=== PATIENT | female | born 1955 | race Caucasian/White ===

== ENCOUNTER 2021-10-25 08:09 | Outpatient (REF) | payer OTHER, SELFPAY ==
[2021-10-25 09:13] LABS: Alanine Aminotransferase 18 U/L (0-31); Albumin Level 4.4 g/dL (3.5-5.0); Alkaline Phosphatase 97 U/L (39-117); Anion Gap 16 (12-20); Aspartate Amino Transferase 20 U/L (5-31); Bilirubin Total 0.7 mg/dL (0.0-1.0); Blood Urea Nitrogen 16 mg/dL (9-16); Calcium 9.5 mg/dL (8.4-10.2); Carbon Dioxide 23 mmol/L (22-29); Chloride 108 mmol/L (96-108); Cholesterol 246 mg/dL; Estimated Glomerular Filt Rate > 60; Glucose Fasting 92 mg/dL (60-99); HDL Cholesterol 68 mg/dL; LDL Cholesterol Calculated 166 mg/dl; Potassium 4.5 mmol/L (3.3-5.1); Sodium 142 mmol/L (135-145); Total Protein 6.9 g/dL (6.5-8.0); Triglycerides 61 mg/dL
[2021-10-25 09:35] LABS: Free T4 (Free Thyroxine) 1.13 ng/dL (0.71-1.85); Thyroid Stimulating Hormone 1.03 uIU/mL (0.32-4.0)
== END 2021-10-25 08:10 | disposition home or self-care (01) ==
LOC: HO.LAB 08:09
PROVIDERS: Visit Provider Psychiatry & Neurology Psychiatry
DX: Z13.89 Encounter for screening for other disorder (principal)
CPT/HCPCS: 36415; 80053; 80061; 84439; 84443

== ENCOUNTER → 2022-02-26 14:38 | Outpatient (BNVA) | payer OTHER, SELFPAY | PROVIDERS: PCP Internal Medicine; Visit Provider Psychiatry & Neurology Psychiatry | DX: F32.A Depression, unspecified (principal) ==

== ENCOUNTER 2022-05-14 14:29 | Outpatient (AMB) | payer OTHER, SELFPAY ==
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
== END 2022-05-14 15:04 | disposition home or self-care (01) ==
LOC: HO.HOP 14:29
PROVIDERS: PCP Internal Medicine; Visit Provider Psychiatry & Neurology Psychiatry
DX: F41.1 Generalized anxiety disorder (principal); F33.42 Major depressive disorder, recurrent, in full remission; E03.9 Hypothyroidism, unspecified
CPT/HCPCS: 99499

== ENCOUNTER → 2022-05-14 14:29 | Outpatient (BNVA) | payer OTHER, SELFPAY | PROVIDERS: PCP Internal Medicine; Visit Provider Psychiatry & Neurology Psychiatry | DX: Z13.89 Encounter for screening for other disorder (principal) ==

== ENCOUNTER 2022-12-11 10:49 | Outpatient (AMB) | payer OTHER, SELFPAY ==
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
== END 2022-12-11 12:02 | disposition home or self-care (01) ==
LOC: HO.HOP 10:49
PROVIDERS: PCP Internal Medicine; Visit Provider Psychiatry & Neurology Psychiatry
DX: F33.42 Major depressive disorder, recurrent, in full remission (principal); F41.1 Generalized anxiety disorder
CPT/HCPCS: 90833; 99213

== ENCOUNTER → 2022-12-11 10:49 | Outpatient (BNVA) | payer OTHER, SELFPAY | PROVIDERS: PCP Internal Medicine; Visit Provider Psychiatry & Neurology Psychiatry ==

== ENCOUNTER 2023-06-12 11:36 | Outpatient (AMB) | payer OTHER, SELFPAY ==
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
== END 2023-06-12 13:44 | disposition home or self-care (01) ==
LOC: HO.HOP 11:36
PROVIDERS: PCP Internal Medicine; Visit Provider Psychiatry & Neurology Psychiatry
DX: F41.1 Generalized anxiety disorder (principal)
CPT/HCPCS: 90833; 99212

== ENCOUNTER → 2023-06-12 11:36 | Outpatient (BNVA) | payer OTHER, SELFPAY | PROVIDERS: PCP Internal Medicine; Visit Provider Psychiatry & Neurology Psychiatry ==

== ENCOUNTER 2023-09-25 10:53 | Outpatient (AMB) | payer BC, SELFPAY ==
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
== END 2023-09-25 12:04 | disposition home or self-care (01) ==
PROVIDERS: PCP Internal Medicine; Visit Provider Psychiatry & Neurology Psychiatry
DX: F41.1 Generalized anxiety disorder (principal); F33.42 Major depressive disorder, recurrent, in full remission; E03.9 Hypothyroidism, unspecified
CPT/HCPCS: 90833; 99213

== ENCOUNTER → 2023-09-25 10:53 | Outpatient (BNVA) | payer OTHER, SELFPAY | PROVIDERS: PCP Internal Medicine; Visit Provider Psychiatry & Neurology Psychiatry ==

== ENCOUNTER 2024-01-29 10:58 | Outpatient (AMB) | payer MEDICARE, SELFPAY ==
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
== END 2024-01-29 11:59 | disposition home or self-care (01) ==
LOC: HO.HOP 10:58
PROVIDERS: PCP Internal Medicine; Visit Provider Psychiatry & Neurology Psychiatry
DX: F33.42 Major depressive disorder, recurrent, in full remission (principal); F41.1 Generalized anxiety disorder
CPT/HCPCS: 90833; 99213

== ENCOUNTER → 2024-01-29 10:58 | Outpatient (BNVA) | payer MEDICARE, SELFPAY | PROVIDERS: PCP Internal Medicine; Visit Provider Psychiatry & Neurology Psychiatry | DX: F33.42 Major depressive disorder, recurrent, in full remission (principal); F41.1 Generalized anxiety disorder; Z71.89 Other specified counseling | CPT/HCPCS: 99212 ==

== ENCOUNTER 2024-03-15 13:50 | Emergency (ER) | payer MEDICARE, SELFPAY ==
--- NOTE | ~2024-03-15 | CT_ITS ---
EXAMINATION: CT CERVICAL SPINE WITHOUT CONTRAST CLINICAL INFORMATION: Fall, pain COMPARISON: None available. TECHNIQUE: 3 mm thin axial and reformatted 2 mm thin sagittal and coronal images of cervical spine were obtained without contrast. This CT examination was performed using dose optimization techniques as appropriate, variously including the following: *Automated exposure control *Adjustment of mA and/or kV according to patient size (this includes techniques or standardized protocols for targeted exams where dose is matched to indication/reason for exam; i.e. extremities or head) *Use of iterative reconstruction technique FINDINGS: On sagittal reconstructed images there is normal cervical lordosis. The vertebral heights and alignment is normal. There is loss of C4-5, C6-7 and C7-T1 disc heights . There is mild subluxation at the C1-C2 alignment with spine rotated to the left side. There is moderate calcification of the annular ligament at C1-C2 junction. Craniovertebral junction is normal. There is no visible acute fracture, dislocation or subluxation seen. The prevertebral and paravertebral soft tissues are normal. The lung apices are clear. The tracheal and pharyngeal airway is widely patent. CT/CT cervical spine wo IV con IMPRESSION: No acute fracture or dislocation. Degenerative disc changes as described above. Fleischner guidelines were followed. Electronically signed by: Zane Love MD 03/15/2024 04:35 PM [facility]
--- NOTE | ~2024-03-15 | CT_ITS ---
EXAMINATION: CT HEAD WITHOUT CONTRAST CLINICAL INFORMATION: Fall. Pain. COMPARISON: None available. TECHNIQUE: Contiguous axial imaging was performed from the skull base to vertex without intravenous administration of contrast. This CT examination was performed using dose optimization techniques as appropriate, variously including the following: *Automated exposure control *Adjustment of mA and/or kV according to patient size (this includes techniques or standardized protocols for targeted exams where dose is matched to indication/reason for exam; i.e. extremities or head) *Use of iterative reconstruction technique DLP: 1163 mGy/cm. FINDINGS: There is no acute intra-axial, extra-axial bleed, masses or midline shift. There is no acute infarction in evolution. There is no edema. The ayoub to white matter differences maintained normal. The lateral ventricles are symmetrical in size and configuration without enlargement. Bone windows reveal a small 1 mm lesion with central bone marrow surrounded with lucency likely a small sequestration. Best visualized on axial image 33/6 and coronal image 13/15. There is no scalp soft tissue body. Bilateral paranasal sinuses and mastoid air cells are well-aerated. CT/CT head/brain wo IV con IMPRESSION: No acute intracranial process seen. Additional finding of a small button sequestrum right frontal bone. Differential diagnosis includes osteomyelitis, eosinophilic granuloma, epidermoid/dermoid cyst, osteoid osteoma and fibrous dysplasia. Aggressive tumors or metastatic disease is considered less likely unless patient has a history of primary cancer. Electronically signed by: Zane Love MD 03/15/2024 04:27 PM [facility]
--- NOTE | ~2024-03-15 | XR_ITS ---
EXAMINATION: XR HAND/WRIST, RIGHT CLINICAL INFORMATION: foosh COMPARISON: None available. TECHNIQUE: PA, lateral, and oblique views of the right hand and wrist. FINDINGS: There is a comminuted spiral fracture of the distal radial metadiaphysis which extends through the epiphysis and is intra-articular. There is approximately 2 mm of step-off of the articular surface fracture. There is minimal override, mild comminution, and minimal volar angulation of the distal fracture fragment. No additional fractures are evident. Carpal bones appear intact and normally aligned. The distal ulna appears intact. Soft tissue swelling about the wrist. XR/XR hand wrist RT IMPRESSION: 1. Spiral, comminuted, intra-articular distal radial fracture as discussed. Electronically signed by: Remy Wharton MD 03/15/2024 03:08 PM [facility]
--- NOTE | ~2024-03-15 | CT_ITS ---
EXAMINATION: CT WRIST WITHOUT CONTRAST, RIGHT CLINICAL INFORMATION: Fall. Foosh injury COMPARISON: None available. TECHNIQUE: Axial 0.6 mm thin and reformatted 1 mm thin sagittal and coronal images of right wrist were obtained without contrast. This CT examination was performed using dose optimization techniques as appropriate, variously including the following: *Automated exposure control *Adjustment of mA and/or kV according to patient size (this includes techniques or standardized protocols for targeted exams where dose is matched to indication/reason for exam; i.e. extremities or head) *Use of iterative reconstruction technique FINDINGS: There is a comminuted distal radial fracture with intra-articular extension. There is a small avulsion fracture dorsal lunate bone best visualized on sagittal view 45/28. The distal ulna, carpal bones are normal with normal radiocarpal and carpometacarpal alignment. There is mild dorsal and palmar soft tissue swelling along the wrist. CT/CT wrist RT wo IV con IMPRESSION: Comminuted fractured distal radius with intra-articular extension. There is a long oblique fracture extending into the mid to distal radius. Ulna is intact. Suspect a small avulsion fracture dorsal to the lunate bone. Electronically signed by: Zane Love MD 03/15/2024 04:42 PM EST
[2024-03-15 14:20] VITALS: BP 145/85; PULSE 61; RESP 16; TEMP 37; O2SAT 100; BMI 21.4
--- NOTE | 2024-03-15 14:24 | ED_ITS ---
HPI - Extremity Injury (Upper) General Chief Complaint: Extremity Injury, Upper Stated Complaint: R wrist/forearm injury Time Seen by Provider: 03/15/24 15:04 Source: patient Mode of arrival: ambulatory Limitations: no limitations History of Present Illness ED Provider: Na Aldrich PA-C HPI narrative: Patient is a 68 year old assigned female at with a history of depression, anxiety, and hypothyroidism presenting to the emergency department today with right wrist pain. Patient states that almost 48 hours ago she had a slip and fall on an outstretched right hand and has pain ever since. Patient states that she is right hand dominant. Patient states that she did not hit her head or have any loss of consciousness with the incident. Patient denies any dizziness, lightheadedness, abdominal pain, nausea, vomiting, fever, chills, blurry vision, double vision, loss of vision, chest pain, difficulty breathing, shortness of breath, back pain, night sweats, pain with urination, increased urinary frequency, increased urinary urgency, blood in her urine or stool, syncope or a near syncopal episode, bowel incontinence, bladder incontinence, or any other complaints at this time. MD complaint: injury to: right, wrist and hand Related Data Home Medications ?Medication ?Instructions ?Recorded ?Confirmed levothyroxine 112 mcg tablet 112 mcg PO DAILY 01/29/24 01/29/24 (Synthroid) Allergies Allergy/AdvReac Type Severity Reaction Status Date / Time No Known Allergies Allergy Verified 03/15/24 14:22 [No Known Allergies*] Review of Systems Constitutional: Constitutional: Reports no additional constitutional complaints, Denies chills, Denies fever(s) and Denies night sweats Eyes: Eyes: Reports no additional eye complaints, Denies blurry vision, Denies change in vision, Denies diplopia, Denies eye discharge, Denies loss of vision and Denies eye pain ENT: Denies dizziness Cardiovascular: Cardiovascular: Reports no additional cardiovascular complaints, Denies chest pain, Denies lightheadedness, Denies Loss of Consciousness and Denies dyspnea Respiratory: Respiratory: Reports no additional respiratory complaints and Denies dyspnea Gastrointestinal: Gastrointestinal: Reports no additional gastrointestinal complaints, Denies abdominal pain, Denies melena, Denies hematochezia, Denies change in bowel habits and Denies change in stool character Genitourinary: Genitourinary: Denies hematuria, Denies urinary frequency, Denies dysuria, Denies urinary incontinence, Denies urinary hesitancy and Denies urinary urgency Musculoskeletal: Musculoskeletal: Reports no additional musculoskeletal complaints, Denies numbness and Denies tingling Comments: right wrist and hand pain Neurologic: Denies dizziness, Denies loss of vision, Denies numbness and Denies tingling Psychiatric: Psychiatric: Reports no additional psychiatric complaints Endocrine: Endocrine: Reports no additional endocrine complaints Hematologic/Lymphatic: Hematologic/Lymphatic: Reports no additional hematologic/lymphatic complaints Allergic/Immunologic: Allergic/Immunologic: Reports no additional allergic/immunologic complaints [facility] Past Medical History Attestation statement: The following information was validated with the patient. Source: old records reviewed and nursing notes reviewed Medical History Hypothyroidism Social History Social History Unable to assess alcohol history related to: Unknown Physical Exam Vital Signs: Vital Signs: Last Vital Signs Temp 97.6 F 03/15/24 17:14 Pulse 61 03/15/24 17:14 Resp 16 03/15/24 17:14 BP 146/87 H 03/15/24 17:14 Pulse Ox 98 03/15/24 17:14 O2 Del Method Room Air 03/15/24 17:14 BMI result Body Mass Index 21.4 Const: General: cooperative, no acute distress, alert and awake Nutritional Appearance: well nourished Orientation/consciousness: patient oriented x3 Limitations: no limitations HEENT: Head: Yes normal to inspection and Yes atraumatic Ears: hearing grossly normal bilaterally and external ears normal General nose exam: Normal external nose present, no nasal discharge noted and no epistaxis Face and sinus: Yes normal facial exam, No abrasion and No laceration Mouth: Normal oral and palatal mucosa present, no drooling and no muffled voice Eyes: General: appearance normal, both eyes and all related structures Periorbital: periorbital findings normal Eyelids: Yes eyelids normal Conjunctivae: conjunctivae normal Pupils: Equal, round and reactive pupils present EOM: EOMs intact bilaterally Neck: Neck: Yes normal visual inspection, Yes full ROM and Yes no lymphadenopathy Chest: Chest palpation & inspection: normal inspection of the chest Resp: Effort & Inspection: normal respiratory effort and able to speak in complete sentences GI: Inspection: Yes normal to inspection Neuro: General: patient oriented x3, moves all extremities and CN's II-XI intact bilaterally Cranial nerves: Yes Equal, round and reactive pupils present Cognition (Neuro): normal cognition Extrem: Other: Bruising present to the right dorsal wrist and hand Pain with palpation and ROM of the right wrist and hand Pulses present and strong to entire right upper extremity Limited ROM of the right wrist secondary to pain General: Yes normal to inspection and Yes capillary refill normal Psych: Appearance: grossly normal Mental Status: mental status grossly normal Affect: normal affect Attitude: cooperative Thought process: Normal thought process present Thought content: Normal thought content present Insight: Good insight present (Psych) Course Course Course Narrative: This is a Rapid Medical Examination (RME) performed by Peter Sims PA-C in triage. Full HPI, ROS, assessment and treatment plan per primary provider in the Main ED. 68 yo female here from for eval of right wrist/hand pain s/p FOOSH 2 days ago. slip and fall on ice, fall onto outstretched right hand. no head strike or LOC. seen at - no xrays taken. wrapped and sent to ED for further eval. Plan: xrs Medical Decision Making Medical Decision Making MDM Narrative: Patient is a 68 year old assigned female at with a history of depression, anxiety, and hypothyroidism presenting to the emergency department today with right wrist pain. Patient's physical exam was as noted in the physical exam portion of this note. Patient's CT head and c-spine showed no acute process however, the patient did have an incidental finding of her head CT of a small button sequestrum of the right front lobe with a large differential diagnosis given by the radiologist. Patient's right hand and wrist x-ray and CT showed a comminuted right distal radius fracture with intra-articular extension, a long oblique fracture extending into the mid to distal radius, and a small avulsion fracture dorsal of the lunate. I spoke to the orthopedic team who recommended sugar tong splint and follow up in their office on 03/16/2024 at 0845. I explained my physical exam findings as well as all test results to the patient. I answered all questions asked by the patient. Patient's right wrist was placed in a sugar tong splint, without incident. Patient's PMS was intact prior to and after splint placement. Patient's right upper extremity was placed in a sling, without incident. I stressed the importance of the patient taking her medication as directed (either prescribed or as the over the counter packaging recommends). I stressed the importance of the patient following up with her primary care provider and with the orthopedic group at the scheduled time (0845) on 03/16/2024. I stressed the importance of the patient returning to the emergency department immediately if her symptoms were to worsen or if she were to develop any dizziness, shortness of breath, difficulty breathing, chest pain, blurry vision, loss of vision, nausea, vomiting, abdominal pain, fever, chills, back pain, or any other complaints. Patient verbalized agreement and understanding with this treatment plan and discharge. Differential Diagnosis Differential Diagnoses: The differential diagnosis associated with the presentation includes Right wrist fracture Right hand fracture Admission/Observation Consideration of admission/observation: Escalation of care including admission/observation considered Patient would have been admitted to the hospital had her work up had any findings where hospital admission was appropriate and her clinical presentation warranted hospital admission. Consult Healthcare Provider Management of the patient was discussed with: Cryptologic Supervisor (spoke to the orthopedic team (DUDLEY Yun) as noted in the MDM Rationale portion of this note.) Independent Interpretation I performed an independent interpretation of an: Plain X-Ray and CT Scan Interpretation: My interpretation is in agreement with the radiologist's impression of these imaging studies. EXAMINATION: XR HAND/WRIST, RIGHT CLINICAL INFORMATION: foosh COMPARISON: None available. TECHNIQUE: PA, lateral, and oblique views of the right hand and wrist. FINDINGS: There is a comminuted spiral fracture of the distal radial metadiaphysis which extends through the epiphysis and is intra-articular. There is approximately 2 mm of step-off of the articular surface fracture. There is minimal override, mild comminution, and minimal volar angulation of the distal fracture fragment. No additional fractures are evident. Carpal bones appear intact and normally aligned. The distal ulna appears intact. Soft tissue swelling about the wrist. XR/XR hand wrist RT IMPRESSION: 1. Spiral, comminuted, intra-articular distal radial fracture as discussed. Electronically signed by: Remy Wharton MD 03/15/2024 03:08 PM EST Dictated By: Remy Wharton MD Signed By: Electronically signed by Remy Wharton MD 03/15/24 1508 Report Number: [id number]: Total DLP = 0.00 mGy-cm EXAMINATION: CT HEAD WITHOUT CONTRAST CLINICAL INFORMATION: Fall. Pain. COMPARISON: None available. TECHNIQUE: Contiguous axial imaging was performed from the skull base to vertex without intravenous administration of contrast. This CT examination was performed using dose optimization techniques as appropriate, variously including the following: *Automated exposure control *Adjustment of mA and/or kV according to patient size (this includes techniques or standardized protocols for targeted exams where dose is matched to indication/reason for exam; i.e. extremities or head) *Use of iterative reconstruction technique DLP: 1163 mGy/cm. FINDINGS: There is no acute intra-axial, extra-axial bleed, masses or midline shift. There is no acute infarction in evolution. There is no edema. The ayoub to white matter differences maintained normal. The lateral ventricles are symmetrical in size and configuration without enlargement. Bone windows reveal a small 1 mm lesion with central bone marrow surrounded with lucency likely a small sequestration. Best visualized on axial image 33/6 and coronal image 13/15. There is no scalp soft tissue body. Bilateral paranasal sinuses and mastoid air cells are well-aerated. CT/CT head/brain wo IV con IMPRESSION: No acute intracranial process seen. Additional finding of a small button sequestrum right frontal bone. Differential diagnosis includes osteomyelitis, eosinophilic granuloma, epidermoid/dermoid cyst, osteoid osteoma and fibrous dysplasia. Aggressive tumors or metastatic disease is considered less likely unless patient has a history of primary cancer. Electronically signed by: Zane Love MD 03/15/2024 04:27 PM EST RP Dictated By: Zane Love MD Signed By: Electronically signed by Zane Love MD 03/15/24 1627 Report Number: [id number]: Total DLP = 1065.91 mGy-cm EXAMINATION: CT CERVICAL SPINE WITHOUT CONTRAST CLINICAL INFORMATION: Fall, pain COMPARISON: None available. TECHNIQUE: 3 mm thin axial and reformatted 2 mm thin sagittal and coronal images of cervical spine were obtained without contrast. This CT examination was performed using dose optimization techniques as appropriate, variously including the following: *Automated exposure control *Adjustment of mA and/or kV according to patient size (this includes techniques or standardized protocols for targeted exams where dose is matched to indication/reason for exam; i.e. extremities or head) *Use of iterative reconstruction technique FINDINGS: On sagittal reconstructed images there is normal cervical lordosis. The vertebral heights and alignment is normal. There is loss of C4-5, C6-7 and C7-T1 disc heights . There is mild subluxation at the C1-C2 alignment with spine rotated to the left side. There is moderate calcification of the annular ligament at C1-C2 junction. Craniovertebral junction is normal. There is no visible acute fracture, dislocation or subluxation seen. The prevertebral and paravertebral soft tissues are normal. The lung apices are clear. The tracheal and pharyngeal airway is widely patent. CT/CT cervical spine wo IV con IMPRESSION: No acute fracture or dislocation. Degenerative disc changes as described above. Fleischner guidelines were followed. Electronically signed by: Zane Love MD 03/15/2024 04:35 PM EST RP Dictated By: Zane Love MD Signed By: Electronically signed by Zane Love MD 03/15/24 3268 Report Number: [id number]: Total DLP = 96.69 mGy-cm EXAMINATION: CT WRIST WITHOUT CONTRAST, RIGHT CLINICAL INFORMATION: Fall. Foosh injury COMPARISON: None available. TECHNIQUE: Axial 0.6 mm thin and reformatted 1 mm thin sagittal and coronal images of right wrist were obtained without contrast. This CT examination was performed using dose optimization techniques as appropriate, variously including the following: *Automated exposure control *Adjustment of mA and/or kV according to patient size (this includes techniques or standardized protocols for targeted exams where dose is matched to indication/reason for exam; i.e. extremities or head) *Use of iterative reconstruction technique FINDINGS: There is a comminuted distal radial fracture with intra-articular extension. There is a small avulsion fracture dorsal lunate bone best visualized on sag ittal view 45/28. The distal ulna, carpal bones are normal with normal radiocarpal and carpometacarpal alignment. There is mild dorsal and palmar soft tissue swelling along the wrist. CT/CT wrist RT wo IV con IMPRESSION: Comminuted fractured distal radius with intra-articular extension. There is a long oblique fracture extending into the mid to distal radius. Ulna is intact. Suspect a small avulsion fracture dorsal to the lunate bone. Electronically signed by: Zane Love MD 03/15/2024 04:42 PM [facility] Dictated By: Zane Love MD Signed By: Electronically signed by Zane Love MD 03/15/24 [id number] Radiology Impression Discussion of test interpretation with radiology: I have reviewed the radiologist's reading. Procedures Orthopedic Splinting/Casting Injury #1: Side: right Upper Extremity Injury Location: wrist and hand Upper Extremity Immobilizer: sling/shoulder immobilizer and sugar tong splint Critical Care Time Critical Care Time Critical Care Time: Yes Total Critical Care Time: 44 Attestation: I spent 44 minutes of Critical Care Time with this patient. This does not include time spent on separately reported billable procedures. Discharge Plan Discharge Clinical Impression: Fracture of wrist, Fracture of hand Patient Disposition: Home, Self-Care Instructions: Hand Fracture (ED), Wrist Fracture in Adults (ED), How to Use a Sling (ED) Additional Instructions: Your right wrist and hand x-ray showed a comminuted fracture of the distal radius with intra-articular extension, a long oblique fracture of extending mid to distal radius, and a small avulsion fracture dorsal of the lunate bone. Your CT scan of the head showed a small button sequestrum of the right front bone. This could be many different things and it is crucial you follow up with your primary care provider about this abnormal incidental finding. Do NOT get your splint wet. Do NOT remove your splint. If you have any change in sensation, movement, or color of your right fingers - you may loosen the outer SUSAN wraps. If you find yourself loosening the SUSAN wraps to the point of seeing the white splint material underneath - STOP and proceed to your closest Emergency Department immediately. Follow up with your primary care provider and [place] [facility] [place] 0845 on 03/16/2024. Return to the emergency department immediately if your symptoms worsen or if you develop any dizziness, shortness of breath, difficulty breathing, chest pain, blurry vision, loss of vision, nausea, vomiting, abdominal pain, fever, chills, back pain, or any other complaints. Prescriptions: No Action levothyroxine [Synthroid] 112 mcg tablet 112 mcg PO DAILY [place] [facility] [place] [facility] [Provider Group] (Please attend your [facility] appointment on 03/16/2024) Cristina Hansen MD [Primary Care Provider] - Interventions: ED Discharge Assessment Last Done: 03/15/24 17:14 Discharge Date/Time: 03/15/24 17:15 Print Language: Dominican
--- OUTSIDE RECORDS SUMMARY | 2024-03-15 15:20 | XMS_ITS | Clinical Summary ---
Author Organization [address] Address [address] [place] [id number] Phone Care Team Providers Care Furrier Designer Name Role Phone Cristina Corona MD Primary Care Prov ider Allergies No known active allergies Medications Medication Sig Dispensed Refills Start Date End Date Status Synthroid 112 mcg tablet TAKE 1 TABLET BY MOUTH EVERY DAY 90 tablet 1 01/19/2024 Active Synthroid 112 mcg tablet Take 1 tablet (112 mcg total) by mouth 1 (one) time each day. 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 Osteopenia 11/26/2011 Bipolar affective disorder 12/12/2010 Overview (01/19/2024): Krista Davis provider Immunizations Name Administration Dates Next Due Hepatitis B (Nwelebs-I-Diace , Recombivax HB-Adult) 19yo and older 04/21/2013,11/11/2012,10/14/2012 Influenza Quadravalent, MDCK , 0.5ml, preservative free (Flucelvax) 6mo and older 01/08/2017,12/26/2015 Influenza Quadrivalent, 0.5m l, preservative free (Fluarix; FluLaval; Fluzone) ages 6mo and older (Afluria) 3yo and older 12/27/2018,01/26/2018 Influenza trivalent, with pr eservative (Fluzone; Afluria) 6mo and older 10/29/2011,11/18/2010 PPD Test 12/09/2016 Td Tetanus diptheria (Tdvax) 7yo and older 02/09 Tdap Tetanus diptheria acell ular pertussis (Boostrix; Adacel) 7yo and older 07/24/2022,03/25/2012 Surgical History Surgery Date Site/Laterality Comments OTHER SURGICAL HISTORY age 23 PROCEDURE: HISTORY OTHER; COMMENT: Radioactive ablation thyroid COLONOSCOPY 02/20/11 PROCEDURE: HISTORICAL COLONOSCOPY; COMMENT: normal; repeat in ten yrs Medical History Medical History Date Comments Historical Medical DX DX:Grave's disease; COMMENT: age 24 ablation done Abnormal Pap smear of cervix -2002 DX: Abnormal Pap smear of cervix; COMMENT: treated with colpo, ? LEEP(by pt description). Bipolar affective disorder (CMS/HCC) 12/12/2010 DX:Bipolar affective disorder (HCC); COMMENT: Susan provider Family History Medical History Relation Name Comments Breast cancer Neg Hx Colon cancer Neg Hx Ovarian cancer Neg Hx Uterine cancer Neg Hx Relation Name Status Comments Brother Alive healthy Father (Age 70) stroke Mother (Age 70) heart nestor ck, HTN Social History Tobacco Use Types Packs/Day Years Used Date Smoking Tobacco: Never Smokeless Tobacco: Never Alcohol Use Standard Drinks/Week Comments Yes 0 (1 standard drink = 0.6 oz pur e alcohol) Sex and Gender Information Value Date Recorded Sex Assigned at Not on file Gender Identity Not on file Sexual Orientation Not on file Job Start Date Occupation Industry Not on file Not on file Not on file Obstetrics History Last Filed Vital Signs Vital Sign Reading Time Taken Comments Blood Pressure 115/60 11/04/2023 11:06 AM EDT Pulse 56 11/04/2023 11:06 AM EDT Temperature - - Respiratory Rate - - Oxygen Saturation - - Inhaled Oxygen Concentration - - Weight 66.2 kg (146 lb) 11/04/2023 11:06 AM EDT Height 176.5 cm (5' 9.5 ) 11/04/2023 11:06 AM ED T Body Mass Index 21.25 11/04/2023 11:06 AM EDT Plan of Treatment Upcoming Encounters Date Type Department Care Team (Late st Contact Info) Description 05/04/2024 11:00 AM EDT Office Visit Adult Medicine [address] [phone] Cristina Corona MD [address] [place] [id number] Health Maintenance Due Date Last Done Comments Zoster Vaccines (1 of 2) 05/14/2007 Cervical Cancer Screening: HPV 04/19/2020 04/20/2015 Breast Cancer Screening 05/17/2020 05/18/19 19, 05/11/2017, 05/06/2016 Colorectal Cancer Screening: Colonoscopy 01/18/2022 Depression Screening 01/18/2022 Osteoporosis Screening (Bone Density Screening) 01/18/2022 Social Influencers of Health Screening 01/18/2022 Falls Risk Assessment 2022 Pneumococcal Vaccine: 65+ Years (1 of 1 - PCV) 2022 COVID-19 Vaccine (2 - season) 2023 05/18/2020 Influenza Vaccine (#1) 2023 9, 01/26/2018, 01/08/2017, Additional history exists Cholesterol Screening (Lipid Panel) 01/17/2029 01/18/2024 RSV Immunization Patients 60+ Years Old (1 - 1-dose 75+ series) 2032 DTaP,Tdap,and Td Vaccines (4 - Td or Tdap) 07/24/2032 07/24/2022, 03/25/2012, 02/09/2007 Hepatitis C Screening Completed 10/14/2012 Hepatitis B Vaccines Completed 04/21/2013, 11/11/2012, 10/14/2012 HIB Vaccines Aged Out No longer eligi ble based on patient's age to complete this topic HPV Vaccines Aged Out No longer eligi ble based on patient's age to complete this topic Hepatitis A Vaccines Aged Out No long er eligible based on patient's age to complete this topic IPV Vaccines Aged Out No longer eligi ble based on patient's age to complete this topic MMR Vaccines Aged Out No longer eligi ble based on patient's age to complete this topic Meningococcal ACWY Vaccine Aged Out N o longer eligible based on patient's age to complete this topic RSV Immunization Patients Under 20 months Aged Out No longer eligible based on patient's age to complete this topic Varicella Vaccines Aged Out No longer eligible based on patient's age to complete this topic Procedures Procedure Name Priority Date/Time Associated Diagnosis Comments CBC WITH AUTO DIFFERENTIAL Routine 01/18/2024 9:37 AM EST Hypothyroidism due to medication LIPID PANEL WITH REFLEX TO DIRECT LDL Routine 01/18/2024 9:37 AM EST Hypothyroidism due to medication THYROID STIMULATING HORMONE Routine 01/18/2024 9:37 AM EST Hypothyroidism due to medication CBC AND DIFFERENTIAL Routine 01/18/2024 9:37 AM EST Hypothyroidism due to medication SCR MAMMO BI INCL CAD Routine 05/17/2018 1:16 PM EDT Encounter for screening mammogram for malignant neoplasm of breast HPV Routine 04/20/2015 HEPATITIS C SCREENING Routine 10/14/2012 from Last 3 Months or Most Recently Relevant to Health Maintenance Results * (ABNORMAL) Lipid panel with reflex to direct LDL (01/18/2024 9:37 AM EST) Cholesterol 271(H) 0 - 200 mg/dL LAB CHEMISTRY METHOD 01/18/2024 1:40 PM [facility] Triglycerides 89 0 - 150 mg/dL LAB CHEMISTRY METHOD 01/18/2024 1:40 PM [facility] HDL 91 >=40 mg/dL LAB CHEMISTRY METHOD 01/18/2024 1:40 PM [facility] LDL Calculated 162(H) 0 - 100 mg/dL LAB CHEMISTRY METHOD 01/18/2024 1:40 PM [facility] VLDL Cholesterol Manuel 17.8 mg/dL LAB CHEMISTRY METHOD 01/18/2024 1:40 PM [facility] Non HDL Chol. (LDL+VLDL) 180(H) <145 mg/dL LAB CHEMISTRY METHOD 01/18/2024 1:40 PM [facility] Chol/HDL Ratio 3.0 0.0 - 4.4 LAB CHEMISTRY METHOD 01/18/2024 1:40 PM [facility] Blood Venous blood specimen / Unknown Venipuncture / Unknown 01/18/2024 9:37 AM EST 01/18/2024 9:37 AM EST Cristina Corona MD LAB BLOOD ORDERABLES [facility] [address] [place] [address], * CBC auto differential (01/18/2024 9:37 AM EST) WBC 4.8 4.8 - 10.8 K/mcL LAB HEMETOLOGY METHOD 01/18/2024 1:07 PM [facility] RBC 4.70 3.80 - 4.80 M/mcL LAB HEMETOLOGY METHOD 01/18/2024 1:07 PM [facility] Hemoglobin 14.3 11.5 - 16.0 g/dL LAB HEMETOLOGY METHOD 01/18/2024 1:07 PM [facility] Hematocrit 44.2 35.0 - 47.0 % LAB HEMETOLOGY METHOD 01/18/2024 1:07 PM [facility] MCV 95.1 79.0 - 98.0 FL LAB HEMETOLOGY METHOD 01/18/2024 1:07 PM [facility] MCH 30.8 27.0 - 32.0 pcg LAB HEMETOLOGY METHOD 01/18/2024 1:07 PM [facility] MCHC 32.4 32.0 - 37.0 g/dL LAB HEMETOLOGY METHOD 01/18/2024 1:07 PM [facility] RDW 13.1 11.0 - 15.0 % LAB HEMETOLOGY METHOD 01/18/2024 1:07 PM [facility] Platelets 350 130 - 400 K/mcL LAB HEMETOLOGY METHOD 01/18/2024 1:07 PM [facility] MPV 9.8 7.0 - 11.0 FL LAB HEMETOLOGY METHOD 01/18/2024 1:07 PM [facility] NRBC 0.0 <1.0 % LAB HEMETOLOGY METHOD 01/18/2024 1:07 PM [facility] NRBC Absolute 0.00 <0.10 K/mcL LAB HEMETOLOGY METHOD 01/18/2024 1:07 PM [facility] Neutrophils Relative 60.0 % LAB HEMETOLOGY METHOD 01/18/2024 1:07 PM [facility] Lymphocytes Relative 30.2 % LAB HEMETOLOGY METHOD 01/18/2024 1:07 PM [facility] Monocytes Relative 7.4 % LAB HEMETOLOGY METHOD 01/18/2024 1:07 PM [facility] Eosinophils Relative 1.4 % LAB HEMETOLOGY METHOD 01/18/2024 1:07 PM [facility] Basophils Relative 0.8 % LAB HEMETOLOGY METHOD 01/18/2024 1:07 PM [facility] Immature Granulocytes Relative 0.2 % LAB HEMETOLOGY METHOD 01/18/2024 1:07 PM [facility] Neutrophils Absolute 2.90 1.50 - 7.00 K/mcL LAB HEMETOLOGY METHOD 01/18/2024 1:07 PM [facility] Lymphocytes Absolute 1.46 1.00 - 5.00 K/mcL LAB HEMETOLOGY METHOD 01/18/2024 1:07 PM [facility] Monocytes Absolute 0.36 0.20 - 1.00 K/mcL LAB HEMETOLOGY METHOD 01/18/2024 1:07 PM [facility] Eosinophils Absolute 0.07 0.00 - 0.50 K/mcL LAB HEMETOLOGY METHOD 01/18/2024 1:07 PM EST [facility] Basophils Absolute 0.04 0.00 - 0.20 K/[facility] LAB HEMETOLOGY METHOD 01/18/2024 1:07 PM EST [facility] Immature Granulocytes Absolute 0.01 0.00 - 0.03 K/[facility] LAB HEMETOLOGY METHOD 01/18/2024 1:07 PM EST [facility] Blood Venous blood specimen / Unknown Venipuncture / Unknown 01/18/2024 9:37 AM EST 01/18/2024 9:37 AM EST Cristina Corona MD LAB BLOOD ORDERABLES Performing Organization Address City/[facility]/ZIP Co de Phone Number [facility] [address] [place] [address], * Thyroid stimulating hormone (01/18/2024 9:37 AM EST) TSH 1.11 0.40 - 4.00 mcIU/mL LAB CHEMISTRY METHOD 01/18/2024 1:32 PM EST [facility] Blood Venous blood specimen / Unknown Venipuncture / Unknown 01/18/2024 9:37 AM EST 01/18/2024 9:37 AM EST Cristina Corona MD LAB BLOOD ORDERABLES [facility] [address] [place] [address], [place] [phone] * SCR MAMMO BI INCL CAD (05/17/2018 1:16 PM EDT) Anatomical Region Laterality Modality Radiographic Elina ging 05/11/2017 2:02 PM EDT Narrative 05/18/2018 1:05 PM EDT This is a summary report. The complete report is available in the patient's medical record. If you cannot access the medical record, please contact the sending organization for a detailed fax or copy. Full field digital screening mammography, reviewed with CAD and compared to previous. The breast tissue is heterogeneously dense, limiting sensitivity. No suspicious mass, architectural distortion or suspicious calcifications are identified. IMPRESSION: : Dense breast tissue, limiting the sensitivity of mammography. No mammographic evidence of malignancy. BIRADS 1-Negative; N. 5 year breast cancer risk assessment 1.5 % Lifetime breast cancer risk assessment 7.2 % Breast cancer risk category Low (<15%) Procedure Note Cheko Goff MD - 01/28/2022 This is a summary report. The complete report is available in thepatient's medical record. If you cannot access the medical record, pleasecontact the sending organization for a detailed fax or copy. Full field digital screening mammography, reviewed with CAD and comparedto previous. The breast tissue is heterogeneously dense, limitingsensitivity. No suspicious mass, architectural distortion or suspiciouscalcifications are identified. IMPRESSION: : Dense breast tissue, limiting the sensitivity of mammography. Nomammographic evidence of malignancy. BIRADS 1-Negative; N. 5 year breast cancer risk assessment 1.5 % Lifetime breast cancer risk assessment 7.2 % Breast cancer risk category Low (<15%) Melody Ba MD IMG XR PROCEDUR ES * Cervical Cancer Screening: HPV (04/20/2015) [facility] Cervical Cancer Screening: HPV abstracted, negative Historical Provider MD TREVOR ALFARO E * Hepatitis C Screening (10/14/2012) [facility] Hepatitis C Screening abstracted Historical Provider MD TREVOR Lorenzana from Last 3 Months or Most Recently Relevant to Health Maintenance Care Teams Furrier Designer Relationship Specialty Start Date End Date Cristina Corona MD PCP - General Internal Medicine 09/10/21
[2024-03-15 15:26] VITALS: BP 146/87; PULSE 61; RESP 16; TEMP 36.4; O2SAT 98
[2024-03-15 17:14] VITALS: BP 146/87; PULSE 61; RESP 16; TEMP 36.4; O2SAT 98
== END 2024-03-15 17:15 | disposition home or self-care (01) ==
PROVIDERS: Emergency Provider Emergency Medicine; PCP Internal Medicine
DX: S62.101A Fracture of unspecified carpal bone, right wrist, initial encounter for closed fracture (principal); S62.91XA Unspecified fracture of right hand, initial encounter for closed fracture; M54.2 Cervicalgia; M79.641 Pain in right hand; M25.531 Pain in right wrist; R51.9 Headache, unspecified; W19.XXXA Unspecified fall, initial encounter; Y93.9 Activity, unspecified; Y92.89 Other specified places as the place of occurrence of the external cause; Y99.8 Other external cause status; Z79.899 Other long term (current) drug therapy
CPT/HCPCS: 29125; 70450; 72125; 73110; 73130; 73200; 99284

== ENCOUNTER → 2024-03-15 14:22 | Outpatient (BNV) | payer MEDICARE, SELFPAY | PROVIDERS: Emergency Provider Emergency Medicine; PCP Internal Medicine; Visit Provider Radiology Diagnostic Radiology | DX: M25.531 Pain in right wrist (principal); M79.641 Pain in right hand; M54.2 Cervicalgia; W19.XXXA Unspecified fall, initial encounter | CPT/HCPCS: 70450; 72125; 73110; 73130; 73200 ==

== ENCOUNTER 2024-03-16 08:43 | Outpatient (AMB) | payer MEDICARE, SELFPAY ==
--- NOTE | 2024-03-16 08:24 | MHC.OFFVIS ---
Vital Signs 03/16/24 09:02 Height 5 ft 9 in Weight 144 lb BMI 21.3 Intake Visit Reasons: FC-right wrist/hand pain s/p-DOI 03/13/24 Intake Note: Deysi 68 yr old female presents today for a new patient visit for her right wrist pain. Patient states that on 03/13/24 she had a slip and fall on an outstretched right hand and has pain ever since. Patient states that she is right hand dominant. Seen in ED where xrays were taken, placed in a sugar tong splint and referred to orthopedic. Currently states she has no pain due to having her splint on. Denies numbness or tingling. Allergies No Known Allergies [No Known Allergies*] Allergy (Verified 03/16/24 08:51) HPI HPI FC-right wrist/hand pain s/p-DOI 03/13/24: Details: Deysi is a 68 year old right hand dominant woman who presents for a right wrist & forearm fracture, S/P fall, DOI: 03/13/24. She slipped and fell on some ice. She was seen in the ED on 03/15/24 and placed in a Sugar-tong splint. She complains of pain in her wrist & forearm, worse with motion. She denies any numbness or tingling. She says she enjoys doing art projects at home, and wants to now how long she has to wait before she can return to these activities. She had questions about surgery and the recovery timeline. 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 Review of Systems Const All systems reviewed & are unremarkable except as noted in HPI and below Physical Exam Vital Signs: BMI result Body Mass Index 21.3 Const General: cooperative, healthy appearing and no acute distress Orientation/consciousness: patient oriented x3 HEENT Head: Yes normocephalic and Yes atraumatic Eyes EOM: EOMs intact bilaterally Resp Effort & Inspection: normal respiratory effort and able to speak in complete sentences Cardio Jugular venous distension: no JVD Skin General skin exam: turgor normal Rashes: no rashes Neuro General: patient oriented x3 Extrem Other: Evaluation of Right Upper Extremity: The patient is alert, oriented, and in no acute distress Neuro: Median, Ulnar, Radial nerves motor and sensory grossly intact Vascular: Cap refill brisk ROM: Only weakly able to wiggle her fingers secondary to pain She was able to demonstrate elbow flexion extension without pain No lacerations or abrasions, or evidence of open fracture Ecchymosis about the wrist & hand Swelling in the forearm that extends up into the elbow Most tender over the distal radius No tenderness over the radial head No tenderness about the olecranon or distal humerus No pain with proximal forearm squeeze Radiographs: 3 views of the right wrist from 03/15/24 were reviewed by me today in clinic. They show a long, oblique, spiral, comminuted, distal radius fracture, intra-articular, & radial shaft fracture, extending from the lunate facet proximally into the shaft, with additional comminution in the radial styloid metaphysis, minimally displaced. CT/CT wrist RT wo IV con FINDINGS: There is a comminuted distal radial fracture with intra-articular extension. There is a small avulsion fracture dorsal lunate bone best visualized on sagittal view 45/28. The distal ulna, carpal bones are normal with normal radiocarpal and carpometacarpal alignment. There is mild dorsal and palmar soft tissue swelling along the wrist. IMPRESSION: Comminuted fractured distal radius with intra-articular extension. There is a long oblique fracture extending into the mid to distal radius. Ulna is intact. Suspect a small avulsion fracture dorsal to the lunate bone. Electronically signed by: Zane Love MD 03/15/2024 Psych Appearance: grossly normal Affect: normal affect Attitude: cooperative Assessment & Plan Assessment & Plan (1) Fracture of right distal radius: Code(s): S52.501A - Unspecified fracture of the lower end of right radius, initial encounter for closed fracture Category: Medical (2) Fracture of radial shaft, right, closed: Code(s): S52.301A - Unspecified fracture of shaft of right radius, initial encounter for closed fracture Category: Medical (3) Right lunate fracture: Code(s): S62.121A - Displaced fracture of lunate [semilunar], right wrist, initial encounter for closed fracture Category: Medical Plan Assessment & Plan: 1. Right distal radius fracture, spiral comminuted From a fall, DOI: 03/13/24 2. Right radial shaft fracture, long oblique Extending from the lunate facet proximally into the shaft, with additional comminution in the radial styloid From a fall, DOI: 03/13/24 I educated her about this condition I discussed operative and non-operative treatment options, and recommending surgery The patient would like to proceed with surgery She should keep her arm elevated at or above heart level to reduce swelling The risks and benefits of operative treatment were discussed with the patient and the patient wishes to proceed with surgery. These risks include, but are not limited to risk of damage to blood vessels, nerves, tendons, infection, recurrence, incomplete relief of preoperative symptoms, persistent pain, possible need for further surgery and the risks associated with regional blocks and anesthesia. The plan is to take the patient to the operating room sometime on 03/17/24 for the following procedures: 1. Right distal radius & radial shaft fracture ORIF, under general All of the preoperative paperwork including the consent was reviewed today. All the patient's questions were answered. The patient understands that they will be contacted by our auto transmission specialist soon to schedule this procedure She denies Diabetes, blood thinners, asthma, heart, lung, kidney issues Please note that greater than 45 minutes was spent with this patient going over the history, evaluating the patient and radiographs, formulating possible treatment options, discussing them with the patient, and documenting the visit. Scribed for Chani Ceja MD by Oren Tamayo, medical anthropology director, on 03/16/24 at 9:20 AM, EST. Coding Level of Care Code New Pt Level 4 (22851) Diagnoses Fracture of right distal radius S52.501A Fracture of radial shaft, right, closed S52.301A Right lunate fracture S62.121A
--- OUTSIDE RECORDS SUMMARY | 2024-03-16 08:46 | XMS_ITS | Clinical Summary ---
Author Organization [address] Address [address] [place] [phone] Phone Care Team Providers Care Staff Sonographer Name Role Phone Cristina Corona MD Primary [...] Name Administration Dates Next Due Hepatitis B (Vvicfml-R-Esfij , Recombivax HB-Adult) 19yo and older 04/21/2013,11/11/2012,10/14/2012 [...] 11:00 AM EDT Office Visit Adult Medicine [address] [phone] Cristina Corona MD [address] [place] [id number] Health Maintenance Due Date Last Done Comments [...] mg/dL LAB CHEMISTRY METHOD 01/18/2024 1:40 PM [facility] Triglycerides 89 0 - 150 mg/dL LAB CHEMISTRY METHOD 01/18/2024 1:40 PM [facility] HDL 91 >=40 mg/dL LAB CHEMISTRY METHOD 01/18/2024 1:40 PM [facility] LDL Calculated 162(H) 0 - 100 mg/dL LAB CHEMISTRY METHOD 01/18/2024 1:40 PM [facility] VLDL Cholesterol Manuel 17.8 mg/dL LAB CHEMISTRY METHOD 01/18/2024 1:40 PM [facility] Non HDL Chol. (LDL+VLDL) 180(H) <145 mg/dL LAB CHEMISTRY METHOD 01/18/2024 1:40 PM [facility] Chol/HDL Ratio 3.0 0.0 - 4.4 LAB CHEMISTRY METHOD 01/18/2024 1:40 PM [facility] Blood Venous blood specimen / Unknown Venipuncture / Unknown 01/18/2024 9:37 AM EST 01/18/2024 9:37 AM EST Cristina Corona MD LAB BLOOD ORDERABLES [facility] [address] [place] [address], * CBC auto differential (01/18/2024 9:37 AM EST) WBC 4.8 4.8 - 10.8 K/mcL LAB HEMETOLOGY METHOD 01/18/2024 1:07 PM [facility] RBC 4.70 3.80 - 4.80 M/mcL LAB HEMETOLOGY METHOD 01/18/2024 1:07 PM [facility] Hemoglobin 14.3 11.5 - 16.0 g/dL LAB HEMETOLOGY METHOD 01/18/2024 1:07 PM [facility] Hematocrit 44.2 35.0 - 47.0 % LAB HEMETOLOGY METHOD 01/18/2024 1:07 PM [facility] MCV 95.1 79.0 - 98.0 FL LAB HEMETOLOGY METHOD 01/18/2024 1:07 PM [facility] MCH 30.8 27.0 - 32.0 pcg LAB HEMETOLOGY METHOD 01/18/2024 1:07 PM [facility] MCHC 32.4 32.0 - 37.0 g/dL LAB HEMETOLOGY METHOD 01/18/2024 1:07 PM [facility] RDW 13.1 11.0 - 15.0 % LAB HEMETOLOGY METHOD 01/18/2024 1:07 PM [facility] Platelets 350 130 - 400 K/mcL LAB HEMETOLOGY METHOD 01/18/2024 1:07 PM [facility] MPV 9.8 7.0 - 11.0 FL LAB HEMETOLOGY METHOD 01/18/2024 1:07 PM [facility] NRBC 0.0 <1.0 % LAB HEMETOLOGY METHOD 01/18/2024 1:07 PM [facility] NRBC Absolute 0.00 <0.10 K/mcL LAB HEMETOLOGY METHOD 01/18/2024 1:07 PM [facility] Neutrophils Relative 60.0 % LAB HEMETOLOGY METHOD 01/18/2024 1:07 PM [facility] Lymphocytes Relative 30.2 % LAB HEMETOLOGY METHOD 01/18/2024 1:07 PM [facility] Monocytes Relative 7.4 % LAB HEMETOLOGY METHOD 01/18/2024 1:07 PM [facility] Eosinophils Relative 1.4 % LAB HEMETOLOGY METHOD 01/18/2024 1:07 PM [facility] Basophils Relative 0.8 % LAB HEMETOLOGY METHOD 01/18/2024 1:07 PM [facility] Immature Granulocytes Relative 0.2 % LAB HEMETOLOGY METHOD 01/18/2024 1:07 PM [facility] Neutrophils Absolute 2.90 1.50 - 7.00 K/mcL LAB HEMETOLOGY METHOD 01/18/2024 1:07 PM [facility] Lymphocytes Absolute 1.46 1.00 - 5.00 K/mcL LAB HEMETOLOGY METHOD 01/18/2024 1:07 PM [facility] Monocytes Absolute 0.36 0.20 - 1.00 K/mcL LAB HEMETOLOGY METHOD 01/18/2024 1:07 PM [facility] Eosinophils Absolute 0.07 0.00 - 0.50 K/mcL LAB HEMETOLOGY METHOD 01/18/2024 1:07 PM EST [facility] Basophils Absolute 0.04 0.00 - 0.20 K/[facility] LAB HEMETOLOGY METHOD 01/18/2024 1:07 PM EST [facility] Immature Granulocytes Absolute 0.01 0.00 - 0.03 K/[facility] HEMETOLOGY METHOD 01/18/2024 1:07 PM EST [facility] Blood Venous blood specimen / Unknown Venipuncture / Unknown 01/18/2024 9:37 AM EST 01/18/2024 9:37 AM EST Cristina Corona MD LAB BLOOD ORDERABLES Performing Organization Address City/[facility]/ZIP Co de Phone Number [facility] [address] [place] [address], * Thyroid stimulating hormone (01/18/2024 9:37 AM EST) TSH 1.11 0.40 - 4.00 mcIU/mL LAB CHEMISTRY METHOD 01/18/2024 1:32 PM EST [facility] Blood Venous blood specimen / Unknown Venipuncture / Unknown 01/18/2024 9:37 AM EST 01/18/2024 9:37 AM EST Cristina Corona MD LAB BLOOD ORDERABLES [facility] [address] [place] [address], [place] [phone] * SCR MAMMO BI INCL CAD (05/17/2018 [...] ES * Cervical Cancer Screening: HPV (04/20/2015) [facility] Cervical Cancer Screening: HPV abstracted, negative Historical Provider MD TREVOR ALFARO E * Hepatitis C Screening (10/14/2012) [facility] Hepatitis C Screening abstracted Historical Provider MD TREVOR Lorenzana from Last 3 Months or Most Recently Relevant to Health Maintenance Care Teams Staff Sonographer Relationship Specialty Start Date End Date Cristina Corona MD PCP - General Internal Medicine 09/10/21
[2024-03-16 09:02] VITALS: BMI 21.3
== END 2024-03-16 10:11 | disposition home or self-care (01) ==
PROVIDERS: PCP Internal Medicine; Visit Provider Orthopaedic Surgery
DX: S52.501A Unspecified fracture of the lower end of right radius, initial encounter for closed fracture (principal); S52.301A Unspecified fracture of shaft of right radius, initial encounter for closed fracture; S62.121A Displaced fracture of lunate [semilunar], right wrist, initial encounter for closed fracture; W00.0XXA Fall on same level due to ice and snow, initial encounter
CPT/HCPCS: 99204

== ENCOUNTER → 2024-03-16 08:43 | Outpatient (BNVA) | payer MEDICARE, SELFPAY | PROVIDERS: PCP Internal Medicine; Visit Provider Orthopaedic Surgery | DX: S52.501A Unspecified fracture of the lower end of right radius, initial encounter for closed fracture (principal); S52.301A Unspecified fracture of shaft of right radius, initial encounter for closed fracture; S62.121A Displaced fracture of lunate [semilunar], right wrist, initial encounter for closed fracture | CPT/HCPCS: 99202 ==

== ENCOUNTER 2024-03-21 05:59 | Day surgery (SDC) | payer MEDICARE, SELFPAY ==
--- OUTSIDE RECORDS SUMMARY | 2024-03-21 06:03 | XMS_ITS | Clinical Summary ---
Author Organization [address] Address [address] [place] [phone] Phone Care Team Providers Care [employer] Librarian Name Role Phone Cristina Corona MD Primary Care Prov ider Allergies No known active allergies Medications Synthroid 112 mcg tablet TAKE 1 TABLET [...] Name Administration Dates Next Due Hepatitis B (Gdgqbno-W-Bfteg , Recombivax HB-Adult) 19yo and older 04/21/2013,11/11/2012,10/14/2012 [...] drink = 0.6 oz pur e alcohol) Comments Unknown Sex and Gender Information Value Date Recorded Sex Assigned at Not on file Legal Sex Female 7:06 PM EST Gender Identity Not on file Sexual Orientation Not on file Obstetrics History Last Filed [...] 11:00 AM EDT Office Visit Adult Medicine [address] [phone] Cristina Corona MD [address] [place] [address] Health Maintenance Due Date Last Done Comments Zoster Vaccines (1 of 2) 05/14/2007 Cervical Cancer Screening: HPV 04/19/2020 04/20/2015 Breast Cancer Screening 05/17/2020 05/18/19 19, 05/11/2017, 05/06/2016 Colorectal Cancer Screening: Colonoscopy 01/18/2022 Depression Screening 01/18/2022 Osteoporosis Screening (Bone Density Screening) 01/18/2022 Social Influencers of Health Screening 01/18/2022 Falls Risk Assessment 2022 Pneumococcal Vaccine: 50+ Years (1 of 1 - PCV) 2022 [...] mg/dL LAB CHEMISTRY METHOD 01/18/2024 1:40 PM [facility] Triglycerides 89 0 - 150 mg/dL LAB CHEMISTRY METHOD 01/18/2024 1:40 PM [facility] HDL 91 >=40 mg/dL LAB CHEMISTRY METHOD 01/18/2024 1:40 PM [facility] LDL Calculated 162(H) 0 - 100 mg/dL LAB CHEMISTRY METHOD 01/18/2024 1:40 PM [facility] VLDL Cholesterol Manuel 17.8 mg/dL LAB CHEMISTRY METHOD 01/18/2024 1:40 PM [facility] Non HDL Chol. (LDL+VLDL) 180(H) <145 mg/dL LAB CHEMISTRY METHOD 01/18/2024 1:40 PM [facility] Chol/HDL Ratio 3.0 0.0 - 4.4 LAB CHEMISTRY METHOD 01/18/2024 1:40 PM [facility] Blood Venous blood specimen / Unknown Venipuncture / Unknown 01/18/2024 9:37 AM EST 01/18/2024 9:37 AM EST us Cristina Corona MD LAB BLOOD ORDERABL ES Final Result [facility] [address] [place] [address], [place] [phone] * CBC auto differential (01/18/2024 9:37 AM EST) WBC 4.8 4.8 - 10.8 K/mcL LAB HEMETOLOGY METHOD 01/18/2024 1:07 PM [facility] RBC 4.70 3.80 - 4.80 M/mcL LAB HEMETOLOGY METHOD 01/18/2024 1:07 PM [facility] Hemoglobin 14.3 11.5 - 16.0 g/dL LAB HEMETOLOGY METHOD 01/18/2024 1:07 PM [facility] Hematocrit 44.2 35.0 - 47.0 % LAB HEMETOLOGY METHOD 01/18/2024 1:07 PM [facility] MCV 95.1 79.0 - 98.0 FL LAB HEMETOLOGY METHOD 01/18/2024 1:07 PM [facility] MCH 30.8 27.0 - 32.0 pcg LAB HEMETOLOGY METHOD 01/18/2024 1:07 PM [facility] MCHC 32.4 32.0 - 37.0 g/dL LAB HEMETOLOGY METHOD 01/18/2024 1:07 PM [facility] RDW 13.1 11.0 - 15.0 % LAB HEMETOLOGY METHOD 01/18/2024 1:07 PM [facility] Platelets 350 130 - 400 K/mcL LAB HEMETOLOGY METHOD 01/18/2024 1:07 PM [facility] MPV 9.8 7.0 - 11.0 FL LAB HEMETOLOGY METHOD 01/18/2024 1:07 PM [facility] NRBC 0.0 <1.0 % LAB HEMETOLOGY METHOD 01/18/2024 1:07 PM [facility] NRBC Absolute 0.00 <0.10 K/mcL LAB HEMETOLOGY METHOD 01/18/2024 1:07 PM [facility] Neutrophils Relative 60.0 % LAB HEMETOLOGY METHOD 01/18/2024 1:07 PM [facility] Lymphocytes Relative 30.2 % LAB HEMETOLOGY METHOD 01/18/2024 1:07 PM [facility] Monocytes Relative 7.4 % LAB HEMETOLOGY METHOD 01/18/2024 1:07 PM [facility] Eosinophils Relative 1.4 % LAB HEMETOLOGY METHOD 01/18/2024 1:07 PM [facility] Basophils Relative 0.8 % LAB HEMETOLOGY METHOD 01/18/2024 1:07 PM [facility] Immature Granulocytes Relative 0.2 % LAB HEMETOLOGY METHOD 01/18/2024 1:07 PM [facility] Neutrophils Absolute 2.90 1.50 - 7.00 K/mcL LAB HEMETOLOGY METHOD 01/18/2024 1:07 PM [facility] Lymphocytes Absolute 1.46 1.00 - 5.00 K/mcL LAB HEMETOLOGY METHOD 01/18/2024 1:07 PM [facility] Monocytes Absolute 0.36 0.20 - 1.00 K/mcL LAB HEMETOLOGY METHOD 01/18/2024 1:07 PM [facility] Eosinophils Absolute 0.07 0.00 - 0.50 K/mcL LAB HEMETOLOGY METHOD 01/18/2024 1:[address] [facility] Basophils Absolute 0.04 0.00 - 0.20 K/[facility] LAB HEMETOLOGY METHOD 01/18/2024 1:[address] [facility] Immature Granulocytes Absolute 0.01 0.00 - 0.03 K/[facility] HEMETOLOGY METHOD 01/18/2024 1:[address] [facility] Blood Venous blood specimen / Unknown Venipuncture / Unknown 01/18/2024 9:37 AM EST 01/18/2024 9:37 AM EST Cristina Corona MD LAB BLOOD ORDERABL ES Final Result Performing Organization Address City/[facility]/ZIP Co de Phone Number [facility] [address] [place] [address], [place] [phone] * Thyroid stimulating hormone (01/18/2024 9:37 AM EST) TSH 1.11 0.40 - 4.00 mcIU/mL LAB CHEMISTRY METHOD 01/18/2024 1:[address] [facility] Blood Venous blood specimen / Unknown Venipuncture / Unknown 01/18/2024 9:37 AM EST 01/18/2024 9:37 AM EST Cristina Corona MD LAB BLOOD ORDERABL ES Final Result [facility] [address] [place] [address], [place] [phone] * SCR MAMMO BI INCL CAD (05/17/2018 [...] Low (<15%) Melody Ba MD IMG XR PROCEDURES Final Result * Cervical Cancer Screening: HPV (04/20/2015) [facility] Cervical Cancer Screening: HPV abstracted, negative Historical Provider HEALTH MAINTENANCE Final Result * Hepatitis C Screening (10/14/2012) [facility] Hepatitis C Screening abstracted Historical Provider HEALTH MAINTENANCE Final Result from Last 3 Months or Most Recently Relevant to Health Maintenance Care Teams [employer] Librarian Relationship Specialty Start Date End Date Cristina Corona MD PCP - General Internal Medicine 09/10/21
[2024-03-21 06:32] VITALS: BMI 21.5
[2024-03-21 06:46] VITALS: BP 129/77; PULSE 46; RESP 16; TEMP 36.7; O2SAT 98
[2024-03-21] MEDS: Lactated Ringers 1,000 ML 100 ML IVCONT (07:12)
--- NOTE | 2024-03-21 07:25 | HO.ANESPROP2 ---
Documented by User: Gail Jenkins NP 03/18/24 09:23 HPI - Anesthesia Eval Consult details Narrative: 68yo F for Right Radius Distal Fracture ORIF and Shaft ORIF PMFSH Active Problems Active Problems: All Active Problems Right lunate fracture (Acute) Fracture of radial shaft, right, closed (Acute) Fracture of right distal radius (Acute) Generalized anxiety disorder (Acute) Major depression, recurrent, full remission (Acute) Hypothyroidism (Acute) Past Medical History Medical History (Updated 03/21/24 @ 06:46 by Haven Cantu RN) Bradycardia History of electroconvulsive therapy Graves disease Hypothyroidism Surgical History Surgical History (Updated 03/21/24 @ 06:37 by Haven Cantu RN) H/O adenoidectomy History of tonsillectomy H/O wisdom tooth extraction Social History Social History (Updated 03/16/24 @ 09:02 by [facility]ek [facility] Are you a primary foster care social worker to a significant other at home: No Do you presently have visiting nurse or other home services: No Unable to assess alcohol history related to: Unknown Patient Tobacco Use Status: Never used Tobacco Use of substances other than those prescribed or required for medical reasons: No Have you been hit, kicked, punched, or otherwise hurt by someone within the past year? 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 Allergies Allergy/AdvReac Type Severity Reaction Status Date / Time No Known Allergies Allergy Verified 03/21/24 06:19 [No Known Allergies*] Active Medications: Current Medications Cefazolin Sodium/Dextrose (Ancef) 2 gm in 50 mls @ 100 mls/hr IV PREOP ONE Stop: 03/21/24 05:29 Home Medications ?Medication ?Instructions ?Recorded ?Confirmed ?Last Taken ?Type levothyroxine 112 mcg tablet 112 mcg PO DAILY 01/29/24 03/21/24 03/21/24 History (Synthroid) Assessment and Plan Assessment Anesthesia Assessment: Chart Reviewed Documented by User: Maryana Meléndez, DO 03/21/24 08:49 PMFSH Past Medical History Medical History (Updated 03/21/24 @ 06:46 by Haven Cantu RN) Bradycardia History of electroconvulsive therapy Graves disease Hypothyroidism Family History Family history of problems with anesthesia: No Surgical History Surgical History (Updated 03/21/24 @ 06:37 by Haven Cantu RN) H/O adenoidectomy History of tonsillectomy H/O wisdom tooth extraction History of Problems with Anesthesia: No Social History Social History (Updated 03/16/24 @ 09:02 by Erika Cheek [facility]) Are you a primary foster care social worker to a significant other at home: No Do you presently have visiting nurse or other home services: No Unable to assess alcohol history related to: Unknown Patient Tobacco Use Status: Never used Tobacco Use of substances other than those prescribed or required for medical reasons: No Have you been hit, kicked, punched, or otherwise hurt by someone within the past year? 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 Allergies Allergy/AdvReac Type Severity Reaction Status Date / Time No Known Allergies Allergy Verified 03/21/24 06:19 [No Known Allergies*] Home Medications ?Medication ?Instructions ?Recorded ?Confirmed ?Last Taken ?Type levothyroxine 112 mcg tablet 112 mcg PO DAILY 01/29/24 03/21/24 03/21/24 History (Synthroid) Exam Exam Date and Time: 03/21/24 0725 Height,Weight and Vital Signs: Height 5 ft 9.5 in Weight 67 kg Vital Signs Temperature 98.0 F 03/21/24 06:46 Pulse Rate 46 L 03/21/24 06:46 Respiratory Rate 16 03/21/24 06:46 Blood Pressure 129/77 03/21/24 06:46 Pulse Oximetry 98 03/21/24 06:46 Oxygen Delivery Method Room Air 03/21/24 06:46 Temperature 98.0 F 03/21/24 06:46 Pulse Rate 46 L 03/21/24 06:46 Respiratory Rate 16 03/21/24 06:46 Blood Pressure 129/77 03/21/24 06:46 Pulse Oximetry 98 03/21/24 06:46 Oxygen Delivery Method Room Air 03/21/24 06:46 Airway Mallampati Class: I TM Dist: >3cm Neck ROM: Full Loose/Missing/Broken Teeth: Yes (missing molar but patient denies any loose or broken teeth) Heart: S1S2 Lungs: CTAB Assessment and Plan Assessment Anesthesia Assessment: Anesthesia Plan Discussed and Chart Reviewed Final Anesthetic Review Family History of Problems with Anesthesia: No History of Problems with Anesthesia: No ASA Class: II Final Preanesthetic Review: No Changes in Pt Med Stat, Meds/Allgs Chart Reviewed, Consent Obtained/Reviewed and Anes Risks/Benef Reviewed Patient Risk: Low Procedure Risk: Low Anesthetic Plan Anesthetic Plan: GA, Regional Block (right brachial plexus block) and Agree w/ Assess. and Plan Disposition: Standard PACU
--- NOTE | 2024-03-21 07:47 | MHC.SHP ---
Pre-Procedural Eval Section A - 24 Hr Update-Section A only Date of Service: 03/21/24 The patient is an INPATIENT: No Changes since office visit: No Cold of Flu in the past 2 weeks, No New Medical Problems, No Changes in Medication and No Patient answered all questions The patient has been examined within 24 hours of the surgical procedure. The History & Physical has been completed within 30 days and I have reviewed it.: Yes Section B - Complete if H&P > 30 days Chief Complaint: oblique fx and fx radius Allergies: Allergies Allergy/AdvReac Type Severity Reaction Status Date / Time No Known Allergies Allergy Verified 03/21/24 06:19 [No Known Allergies*] Plan I have reviewed the history and physical and performed a pertinent physical examination on my patient. No changes have occurred unless specified. Time Spent With Patient Time: Total time managing care of this patient today ____ minutes.
--- NOTE | 2024-03-21 07:47 | W.PM.OPN ---
Operative Note Operative Note Date of Service: 03/21/24 Narrative: Operative Note Narrative: Preop diagnosis: 1. Right intra-articular Distal radius fracture, 2. Right radius shaft fracture Postop diagnosis: Same Procedure: 1. Right Distal radius fracture open reduction internal fixation 2. Right radius shaft fracture open reduction internal fixation Surgeon: Chani Ceja MD Inside Sales Specialist: None Anesthesia: General anesthesia plus regional block Findings: Long oblique fracture extending from the lunate facet aspect of the distal radius obliquely to the shaft of the radius. Some comminution involving the distal radius Implants: A 100 mm long Regis XL volar locking plate, with 4 X 2.4 mm locking pegs/screws, and 3 2.7 mm cortical screws, and 2 X 2.7 mm cortical screws as lag screws for the shaft fracture Tourniquet time: 83 minutes EBL: 5.0 ml Specimen: None Drains: None Complications: None Disposition: Brought to the recovery room in stable condition Plan: Follow-up in 10-14 days for wound check, suture removal and postop radiographs The patient will be placed in either a short-arm cast or a volar wrist splint. Encouraged no lifting of anything heavier than a cell phone. Please encourage active and passive range of motion of the digits. Follow-up at 4-5 weeks postop for repeat radiographs. Indications: The patient is a 68 year old woman with right intra-articular distal radius fracture extending as a long oblique fracture well into the shaft of the radius . The risks and benefits of operative treatment, including but not limited to risk of damage to blood vessels, nerves, tendons, infection, recurrence, persistent pain or numbness, incomplete resolution of preoperative symptoms, or need for further surgery were discussed with the patient and they wished to proceed with surgery. Procedure: Once consent was obtained patient was brought back to the operating suite and placed in the operating table in a supine position. A regional block was performed by the anesthesia team. Perioperative antibiotics and anesthesia was administered by the anesthesia team. A tourniquet was applied to the proximal aspect of the right upper extremity and the limb was prepped and draped in a standard surgical fashion. The limb was elevated exsanguinated with Esmarch bandage and the tourniquet inflated to 250 mm of mercury for a total tourniquet time of 83 minutes. The FluoroScan was used throughout the case to assess our reduction, and facilitate implant placement. I made an 10 cm longitudinal incision over the distal aspect of the flexor carpi radialis tendon extending proximally to the mid forearm. The incision was made through the skin to the subcutaneous tissue using a 15. Blade. Then carefully dissected down to flexor carpi radialis tendon she tenotomy scissors. The FCR tendon sheath was then incised longitudinally using tenotomy scissors under direct visualization. The FCR tendon was then retracted ulnarly. I then made a longitudinal incision in the volar forearm fascia through the floor of FCR tendon sheath using tenotomy scissors under direct visualization. I identified the interval between the radial artery and the flexor tendons. This interval was developed further with my index finger, releasing some of the muscular fibers of the flexor pollicis longus. A dull weatlander retractor was then placed. I then created an ulnarly based flap of the pronator quadratus by releasing the radial and distal edges using a 15. Blade. A Jarvis elevator was used to elevate the pronator quadratus from the volar surface of the distal radius. This then revealed to us our distal radius fracture. There was a displaced long oblique fracture extending from the far lunate facet of the distal radius obliquely to the radial aspect of the shaft of the radius The fracture was debrided of debris. An open reduction was then performed on our distal radius fracture, and it was held using a lobster claw. I then placed 2 transverse lag screws as fixation for the radial shaft. This was done by drilling the near cortex with a 2.7 mm drill bit, then drilling the far cortex with a 2.0 mm drill bit and measuring with a depth gauge. The appropriate length 2.7 mm cortical screw was then placed as a lag screw to add compression across the long oblique fracture. A 2nd transverse lag screw was placed in a similar manner. I then improved the reduction of the distal radius. After measuring for the necessary length of the plate to include the radial shaft we chose a 100 mm Regis XL volar locking plate. The plate was placed on the volar surface of the radial shaft extending to the distal radius.. I placed a single K-wire through the distal aspect of the plate and into the distal radius. This was assessed using fluoroscopic images. I was satisfied with the placement of our plate. I then placed for X 2.4 mm locking screws/pegs in the distal aspect of the plate and distal radius by 1st drilling bicortically with a 2.0 mm drill bit, measuring with a depth gauge, and placing the appropriate length locking screws/pegs. The placement of our plate and screws was then assessed again using fluoroscopic images. The once satisfied with the placement of the volar locking plate and screws on the distal aspect of the distal radius I then reduced the longitudinal aspect of the plate to the shaft and placed the 1st 2.7 mm cortical screw. This was done by 1st drilling bicortically with a 2. 0 mm drill bit, measuring with a depth gauge, and placing the appropriate length screw. Two additional 2.7 mm cortical screws were placed in the shaft securing the longitudinal aspect of the plate to the shaft. Final radiographs were then obtained. The DRUJ was assessed and found to be stable on exam. I was satisfied with our reduction and placement of all implants. At this point the wound was irrigated with normal saline. The pronator quadratus was reduced back over the volar locking plate using some 3-0 Vicryl suture material. The tourniquet was then deflated and hemostasis was obtained with a brief period of local pressure and bipolar monopolar electrocautery. The subcutaneous layer was then reapproximated using some 4-0 Vicryl suture, and the skin edges were reapproximated using some 5 0 Prolene suture. The wound was then infiltrated with some 1% lidocaine with epinephrine postop pain control. A sterile dressing and a short dorsal splint allowing for active flexion and extension of the digits was applied. The patient appears to have tolerated the procedure well and with no complications. All digits were well vascularized conclusion of the case.
[2024-03-21 10:58] VITALS: BP 106/52; PULSE 68; RESP 16; TEMP 36.6; O2SAT 94
[2024-03-21 11:00] VITALS: BP 109/54; PULSE 65; RESP 16; O2SAT 94
[2024-03-21 11:05] VITALS: BP 105/64; PULSE 65; RESP 16; O2SAT 95
[2024-03-21 11:10] VITALS: BP 97/65; PULSE 63; RESP 16; O2SAT 95
[2024-03-21 11:20] VITALS: BP 107/68; PULSE 64; RESP 16; TEMP 36.6; O2SAT 95
== END 2024-03-21 12:11 | disposition home or self-care (01) ==
PROVIDERS: PCP Internal Medicine; Visit Provider Orthopaedic Surgery
PROC: (CPT 25608; principal; 2024-03-21 07:30)
DX: S52.571A Other intraarticular fracture of lower end of right radius, initial encounter for closed fracture (principal); S52.231A Displaced oblique fracture of shaft of right ulna, initial encounter for closed fracture; W00.0XXA Fall on same level due to ice and snow, initial encounter; Y93.01 Activity, walking, marching and hiking; Y92.9 Unspecified place or not applicable; Y99.9 Unspecified external cause status; E03.9 Hypothyroidism, unspecified; Z56.0 Unemployment, unspecified
CPT/HCPCS: 25608; 25575; C1713; J0131; J0690; J1100; J2003; J2004; J2250; J2371; J2405; J2704; J3010

== ENCOUNTER → 2024-03-21 05:59 | Outpatient (BNV) | payer MEDICARE, SELFPAY | PROVIDERS: PCP Internal Medicine; Visit Provider Orthopaedic Surgery | DX: S52.571A Other intraarticular fracture of lower end of right radius, initial encounter for closed fracture (principal); S52.391A Other fracture of shaft of radius, right arm, initial encounter for closed fracture | CPT/HCPCS: 25515; 25607 ==

== ENCOUNTER 2024-04-04 13:08 | Outpatient (REF) | payer MEDICARE, SELFPAY ==
--- NOTE | ~2024-04-04 | XR_ITS ---
EXAMINATION: XR WRIST 3 OR MORE VIEWS RIGHT HISTORY: M25.531 - Pain in right wrist COMPARISON: Comparison is made with the prior examination dated 03/15/2024. FINDINGS: Three views of the right wrist are submitted. Osseous mineralization is normal. The patient is status post internal fixation of the previously seen comminuted fracture of the distal radius with a sideplate and multiple orthopedic screws. The fracture line remains visible. The joint spaces are preserved. The soft tissues are unremarkable. XR/XR wrist RT min 3V IMPRESSION: Internal fixation of the previously seen comminuted fracture of the distal radius. Electronically signed by: Fam John MD 04/05/2024 03:09 PM MICHAEL
--- OUTSIDE RECORDS SUMMARY | 2024-04-04 15:01 | XMS_ITS | Clinical Summary ---
Author Organization [address] Address [address] [place] [phone] Phone Care Team Providers Care Lawn Sprinkler Installer Name Role Phone Cristina Corona MD Primary [...] Name Administration Dates Next Due Hepatitis B (Rgrszsk-W-Oeuzg , Recombivax HB-Adult) 19yo and older 04/21/2013,11/11/2012,10/14/2012 [...] 11:00 AM EDT Office Visit Adult Medicine [address] [phone] Cristina Corona MD [address] [place] [address] Health Maintenance Due Date Last Done Comments Pneumococcal Vaccine: 50+ Years (1 of 1 - PCV) 05/14/2007 Zoster Vaccines (1 of 2) 05/14/2007 Cervical Cancer Screening: HPV 04/19/2020 04/20/2015 Breast Cancer Screening 05/17/2020 05/18/19 19, 05/11/2017, 05/06/2016 Colorectal Cancer Screening: Colonoscopy 01/18/2022 Depression Screening 01/18/2022 Osteoporosis Screening (Bone Density Screening) 01/18/2022 Social Influencers of Health Screening 01/18/2022 Falls Risk Assessment 2022 COVID-19 Vaccine ( season) 2023 05/18/2020 Influenza Vaccine (#1) 2023 [...] patient's age to complete this topic Meningococcal B Vacine Aged Out No lo nger eligible based on patient's age to complete [...] mg/dL LAB CHEMISTRY METHOD 01/18/2024 1:40 PM [facility] Triglycerides 89 0 - 150 mg/dL LAB CHEMISTRY METHOD 01/18/2024 1:40 PM [facility] HDL 91 >=40 mg/dL LAB CHEMISTRY METHOD 01/18/2024 1:40 PM [facility] LDL Calculated 162(H) 0 - 100 mg/dL LAB CHEMISTRY METHOD 01/18/2024 1:40 PM [facility] VLDL Cholesterol Manuel 17.8 mg/dL LAB CHEMISTRY METHOD 01/18/2024 1:40 PM [facility] Non HDL Chol. (LDL+VLDL) 180(H) <145 mg/dL LAB CHEMISTRY METHOD 01/18/2024 1:40 PM [facility] Chol/HDL Ratio 3.0 0.0 - 4.4 LAB CHEMISTRY METHOD 01/18/2024 1:40 PM [facility] Blood Venous blood specimen / Unknown Venipuncture / Unknown 01/18/2024 9:37 AM EST 01/18/2024 9:37 AM EST us Cristina Corona MD LAB BLOOD ORDERABL ES Final Result [facility] [address] [place] [address], * CBC auto differential (01/18/2024 9:37 AM EST) WBC 4.8 4.8 - 10.8 K/mcL LAB HEMETOLOGY METHOD 01/18/2024 1:07 PM [facility] RBC 4.70 3.80 - 4.80 M/mcL LAB HEMETOLOGY METHOD 01/18/2024 1:07 PM [facility] Hemoglobin 14.3 11.5 - 16.0 g/dL LAB HEMETOLOGY METHOD 01/18/2024 1:07 PM [facility] Hematocrit 44.2 35.0 - 47.0 % LAB HEMETOLOGY METHOD 01/18/2024 1:07 PM [facility] MCV 95.1 79.0 - 98.0 FL LAB HEMETOLOGY METHOD 01/18/2024 1:07 PM [facility] MCH 30.8 27.0 - 32.0 pcg LAB HEMETOLOGY METHOD 01/18/2024 1:07 PM [facility] MCHC 32.4 32.0 - 37.0 g/dL LAB HEMETOLOGY METHOD 01/18/2024 1:07 PM [facility] RDW 13.1 11.0 - 15.0 % LAB HEMETOLOGY METHOD 01/18/2024 1:07 PM [facility] Platelets 350 130 - 400 K/mcL LAB HEMETOLOGY METHOD 01/18/2024 1:07 PM [facility] MPV 9.8 7.0 - 11.0 FL LAB HEMETOLOGY METHOD 01/18/2024 1:07 PM [facility] NRBC 0.0 <1.0 % LAB HEMETOLOGY METHOD 01/18/2024 1:07 PM [facility] NRBC Absolute 0.00 <0.10 K/mcL LAB HEMETOLOGY METHOD 01/18/2024 1:07 PM [facility] Neutrophils Relative 60.0 % LAB HEMETOLOGY METHOD 01/18/2024 1:07 PM [facility] Lymphocytes Relative 30.2 % LAB HEMETOLOGY METHOD 01/18/2024 1:07 PM [facility] Monocytes Relative 7.4 % LAB HEMETOLOGY METHOD 01/18/2024 1:07 PM [facility] Eosinophils Relative 1.4 % LAB HEMETOLOGY METHOD 01/18/2024 1:07 PM [facility] Basophils Relative 0.8 % LAB HEMETOLOGY METHOD 01/18/2024 1:07 PM [facility] Immature Granulocytes Relative 0.2 % LAB HEMETOLOGY METHOD 01/18/2024 1:07 PM [facility] Neutrophils Absolute 2.90 1.50 - 7.00 K/mcL LAB HEMETOLOGY METHOD 01/18/2024 1:07 PM [facility] Lymphocytes Absolute 1.46 1.00 - 5.00 K/mcL LAB HEMETOLOGY METHOD 01/18/2024 1:07 PM [facility] Monocytes Absolute 0.36 0.20 - 1.00 K/mcL LAB HEMETOLOGY METHOD 01/18/2024 1:07 PM EST [facility] Eosinophils Absolute 0.07 0.00 - 0.50 K/[facility] LAB HEMETOLOGY METHOD 01/18/2024 1:07 PM [facility] Basophils Absolute 0.04 0.00 - 0.20 K/[facility] LAB HEMETOLOGY METHOD 01/18/2024 1:07 PM EST [facility] Immature Granulocytes Absolute 0.01 0.00 - 0.03 K/[facility] LAB HEMETOLOGY METHOD 01/18/2024 1:07 PM [facility] Blood Venous blood specimen / Unknown Venipuncture / Unknown 01/18/2024 9:37 AM EST 01/18/2024 9:37 AM EST Cristina Corona MD LAB BLOOD ORDERABL ES Final Result Performing Organization Address City/[facility]/ZIP Co de Phone Number [facility] [address] [place] [address], [place] [phone] * Thyroid stimulating hormone (01/18/2024 9:37 AM EST) TSH 1.11 0.40 - 4.00 mcIU/mL LAB CHEMISTRY METHOD 01/18/2024 1:32 PM EST [facility] Blood Venous blood specimen / Unknown Venipuncture / Unknown 01/18/2024 9:37 AM EST 01/18/2024 9:37 AM EST Cristina Corona MD LAB BLOOD ORDERABL ES Final Result Performing Organization Address City/[facility]/ZIP Co de Phone Number [facility] [address] [place] [address], [place] [phone] * SCR MAMMO BI INCL CAD (05/17/2018 [...] Result * Cervical Cancer Screening: HPV (04/20/2015) [facility] Cervical Cancer Screening: HPV abstracted, negative Historical Provider HEALTH MAINTENANCE Final Result * Hepatitis C Screening (10/14/2012) [facility] Hepatitis C Screening abstracted Result [facility] Historical Provider HEALTH MAINTENANCE Final Result from Last 3 Months or Most Recently Relevant to Health Maintenance Care Teams Lawn Sprinkler Installer Relationship Specialty Start Date End Date Cristina Corona MD PCP - General Internal Medicine 09/10/21
== END 2024-04-04 13:09 | disposition home or self-care (01) ==
LOC: HO.HOSX 13:08
DX: M25.531 Pain in right wrist (principal); S52.501D Unspecified fracture of the lower end of right radius, subsequent encounter for closed fracture with routine healing; S52.301D Unspecified fracture of shaft of right radius, subsequent encounter for closed fracture with routine healing; S62.121D Displaced fracture of lunate [semilunar], right wrist, subsequent encounter for fracture with routine healing; Z98.890 Other specified postprocedural states
CPT/HCPCS: 29085; 73110; 99212

== ENCOUNTER 2024-04-04 14:38 | Outpatient (AMB) | payer MEDICARE, SELFPAY ==
--- NOTE | 2024-04-04 14:51 | A.OFFVIS_ITS ---
Intake Visit Reasons: PO RT distal radius/shaft ORIF 03/21/24 AR Intake Note: Deysi 68 yr old female presents today for her P/O visit for her right distal radius shaft ORIF from 03/21/[address] Ceja. States her pain is alot better since surgery. States she was scared to take oxycodone so she just took ibuprofen to manage her pain. Dressing removed and xrays updated in office. Allergies No Known Allergies [No Known Allergies*] Allergy (Verified 04/04/24 14:59) HPI HPI PO RT distal radius/shaft ORIF 03/21/24 AR: Details: corky 68 yr old female presents today for her P/O visit for her right distal radius shaft ORIF from 03/21/[address] Ceja. States her pain is alot better since surgery. States she was scared to take oxycodone so she just took ibuprofen to manage her pain. Dressing removed and xrays updated in office. Patient reports no ongoing acute complaints or concerns at this time. Of note, the patient does appear quite nervous about her recovery. 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 Neuro: Normal sensation of the tips of all digits of the right hand at this time Vascular: Cap refill brisk Pain: No tenderness to palpation noted about the right hand or wrist No pain with range of motion of the right hand ROM: Patient was able to make a closed fist and extend all digits of the right hand fully Skin: Well approximated and well in healing incision site noted on the volar right wrist General: No ecchymosis, erythema, or evidence of infection. Psych: Appears grossly normal Affect normal Attitude cooperative Office Procedures Casting/Splints 51875-Scpe/Wrist Cast Application Procedure code (CPT) selection complete Results Reviewed Results Reviewed: X-rays obtained in the office today and independently reviewed by me, Zelalem Curtis PA-C, demonstrate surgically reduced fracture of the right distal radius with all orthopedic hardware in place and in satisfactory clinical alignment Assessment & Plan Assessment & Plan (1) Fracture of right distal radius: Code(s): S52.501A - Unspecified fracture of the lower end of right radius, initial encounter for closed fracture Category: Medical (2) Fracture of radial shaft, right, closed: Code(s): S52.301A - Unspecified fracture of shaft of right radius, initial encounter for closed fracture Category: Medical (3) Right lunate fracture: Code(s): S62.121A - Displaced fracture of lunate [semilunar], right wrist, initial encounter for closed fracture Category: Medical Plan 1. Status post right distal radius ORIF DOS 03/21/2024 Patient appears to be recovering well postoperatively Patient is educated about the typical recovery course At this time, patient was placed into a short-arm cast Patient is educated about typical cast care and precautions Patient will follow-up in 2 weeks with repeat x-rays for cast removal and reassessment, sooner with any acute concerns Anticipate cast removal and placement into a Velcro wrist splint at that time Orders: Orders XR wrist RT min 3V 04/04/24 M25.531 - Pain in right wrist Coding Level of Care Code Global (42419) Diagnoses Fracture of right distal radius S52.501A Fracture of radial shaft, right, closed S52.301A Right lunate fracture S62.121A CPT Codes Casting - CPT: 49655-Jdpl/Wrist Cast Application ([id number])
--- OUTSIDE RECORDS SUMMARY | 2024-04-04 16:54 | XMS_ITS | Clinical Summary ---
Author Organization [address] Address [address] [place] [phone] Phone Care Team Providers Care Hand Drawer In Helper Name Role Phone Cristina Corona MD Primary [...] Name Administration Dates Next Due Hepatitis B (Nrxodyf-A-Lefnw , Recombivax HB-Adult) 19yo and older 04/21/2013,11/11/2012,10/14/2012 [...] 11:00 AM EDT Office Visit Adult Medicine [address] [phone] Cristina Corona MD [address] [place] [address] Health Maintenance Due Date Last Done Comments [...] mg/dL LAB CHEMISTRY METHOD 01/18/2024 1:40 PM [facility] Triglycerides 89 0 - 150 mg/dL LAB CHEMISTRY METHOD 01/18/2024 1:40 PM [facility] HDL 91 >=40 mg/dL LAB CHEMISTRY METHOD 01/18/2024 1:40 PM [facility] LDL Calculated 162(H) 0 - 100 mg/dL LAB CHEMISTRY METHOD 01/18/2024 1:40 PM [facility] VLDL Cholesterol Manuel 17.8 mg/dL LAB CHEMISTRY METHOD 01/18/2024 1:40 PM [facility] Non HDL Chol. (LDL+VLDL) 180(H) <145 mg/dL LAB CHEMISTRY METHOD 01/18/2024 1:40 PM [facility] Chol/HDL Ratio 3.0 0.0 - 4.4 LAB CHEMISTRY METHOD 01/18/2024 1:40 PM [facility] Blood Venous blood specimen / Unknown Venipuncture / Unknown 01/18/2024 9:37 AM EST 01/18/2024 9:37 AM EST us Cristina Corona MD LAB BLOOD ORDERABL ES Final Result [facility] [address] [place] [address], * CBC auto differential (01/18/2024 9:37 AM EST) WBC 4.8 4.8 - 10.8 K/mcL LAB HEMETOLOGY METHOD 01/18/2024 1:07 PM [facility] RBC 4.70 3.80 - 4.80 M/mcL LAB HEMETOLOGY METHOD 01/18/2024 1:07 PM [facility] Hemoglobin 14.3 11.5 - 16.0 g/dL LAB HEMETOLOGY METHOD 01/18/2024 1:07 PM [facility] Hematocrit 44.2 35.0 - 47.0 % LAB HEMETOLOGY METHOD 01/18/2024 1:07 PM [facility] MCV 95.1 79.0 - 98.0 FL LAB HEMETOLOGY METHOD 01/18/2024 1:07 PM [facility] MCH 30.8 27.0 - 32.0 pcg LAB HEMETOLOGY METHOD 01/18/2024 1:07 PM [facility] MCHC 32.4 32.0 - 37.0 g/dL LAB HEMETOLOGY METHOD 01/18/2024 1:07 PM [facility] RDW 13.1 11.0 - 15.0 % LAB HEMETOLOGY METHOD 01/18/2024 1:07 PM [facility] Platelets 350 130 - 400 K/mcL LAB HEMETOLOGY METHOD 01/18/2024 1:07 PM [facility] MPV 9.8 7.0 - 11.0 FL LAB HEMETOLOGY METHOD 01/18/2024 1:07 PM [facility] NRBC 0.0 <1.0 % LAB HEMETOLOGY METHOD 01/18/2024 1:07 PM [facility] NRBC Absolute 0.00 <0.10 K/mcL LAB HEMETOLOGY METHOD 01/18/2024 1:07 PM [facility] Neutrophils Relative 60.0 % LAB HEMETOLOGY METHOD 01/18/2024 1:07 PM [facility] Lymphocytes Relative 30.2 % LAB HEMETOLOGY METHOD 01/18/2024 1:07 PM [facility] Monocytes Relative 7.4 % LAB HEMETOLOGY METHOD 01/18/2024 1:07 PM [facility] Eosinophils Relative 1.4 % LAB HEMETOLOGY METHOD 01/18/2024 1:07 PM [facility] Basophils Relative 0.8 % LAB HEMETOLOGY METHOD 01/18/2024 1:07 PM [facility] Immature Granulocytes Relative 0.2 % LAB HEMETOLOGY METHOD 01/18/2024 1:07 PM [facility] Neutrophils Absolute 2.90 1.50 - 7.00 K/mcL LAB HEMETOLOGY METHOD 01/18/2024 1:07 PM [facility] Lymphocytes Absolute 1.46 1.00 - 5.00 K/mcL LAB HEMETOLOGY METHOD 01/18/2024 1:07 PM [facility] Monocytes Absolute 0.36 0.20 - 1.00 K/mcL LAB HEMETOLOGY METHOD 01/18/2024 1:07 PM EST [facility] Eosinophils Absolute 0.07 0.00 - 0.50 K/[facility] LAB HEMETOLOGY METHOD 01/18/2024 1:07 PM [facility] Basophils Absolute 0.04 0.00 - 0.20 K/[facility] LAB HEMETOLOGY METHOD 01/18/2024 1:07 PM EST [facility] Immature Granulocytes Absolute 0.01 0.00 - 0.03 K/[facility] LAB HEMETOLOGY METHOD 01/18/2024 1:07 PM [facility] Blood Venous blood specimen / Unknown Venipuncture / Unknown 01/18/2024 9:37 AM EST 01/18/2024 9:37 AM EST Cristina Corona MD LAB BLOOD ORDERABL ES Final Result Performing Organization Address City/[facility]/ZIP Co de Phone Number [facility] [address] [place] [address], [place] [phone] * Thyroid stimulating hormone (01/18/2024 9:37 AM EST) TSH 1.11 0.40 - 4.00 mcIU/mL LAB CHEMISTRY METHOD 01/18/2024 1:32 PM EST [facility] Blood Venous blood specimen / Unknown Venipuncture / Unknown 01/18/2024 9:37 AM EST 01/18/2024 9:37 AM EST Cristina Corona MD LAB BLOOD ORDERABL ES Final Result Performing Organization Address City/[facility]/ZIP Co de Phone Number [facility] [address] [place] [address], [place] [phone] * SCR MAMMO BI INCL CAD (05/17/2018 [...] Result * Cervical Cancer Screening: HPV (04/20/2015) [facility] Cervical Cancer Screening: HPV abstracted, negative Historical Provider HEALTH MAINTENANCE Final Result * Hepatitis C Screening (10/14/2012) [facility] Hepatitis C Screening abstracted Result [facility] Historical Provider HEALTH MAINTENANCE Final Result from Last 3 Months or Most Recently Relevant to Health Maintenance Care Teams Hand Drawer In Helper Relationship Specialty Start Date End Date Cristina Corona MD PCP - General Internal Medicine 09/10/21
== END 2024-04-04 15:54 | disposition home or self-care (01) ==
PROVIDERS: PCP Internal Medicine
DX: S52.501D Unspecified fracture of the lower end of right radius, subsequent encounter for closed fracture with routine healing (principal); S52.301D Unspecified fracture of shaft of right radius, subsequent encounter for closed fracture with routine healing; S62.121D Displaced fracture of lunate [semilunar], right wrist, subsequent encounter for fracture with routine healing
CPT/HCPCS: 29085; 99024

== ENCOUNTER → 2024-04-04 14:41 | Outpatient (BNV) | payer MEDICARE, SELFPAY | PROVIDERS: Visit Provider Radiology Diagnostic Radiology | DX: M25.531 Pain in right wrist (principal) | CPT/HCPCS: 73110 ==

== ENCOUNTER 2024-04-18 13:54 | Outpatient (REF) | payer MEDICARE, SELFPAY ==
--- NOTE | ~2024-04-18 | XR_ITS ---
EXAMINATION: XR WRIST 3 OR MORE VIEWS RIGHT HISTORY: M25.531 - Pain in right wrist COMPARISON: Comparison is made with the prior examination dated 04/04/2024. FINDINGS: Three views of the right wrist are submitted. Osseous mineralization is normal. The patient is again noted to be status post internal fixation of a comminuted fracture of the distal radius with a sideplate and multiple orthopedic screws. Fracture lines remain visible. The joint spaces are preserved. The soft tissues are unremarkable. XR/XR wrist RT min 3V IMPRESSION: Internal fixation of a comminuted fracture of the distal radius as described. Electronically signed by: Fam John MD 04/19/2024 10:56 AM EDT
--- OUTSIDE RECORDS SUMMARY | 2024-04-18 15:47 | XMS_ITS | Clinical Summary ---
Author Organization [address] Address [address] [place] [phone] Phone Care Team Providers Care Sap Portal Architect Name Role Phone Cristina Corona MD Primary [...] Name Administration Dates Next Due Hepatitis B (Bghedit-S-Zfhoh , Recombivax HB-Adult) 19yo and older 04/21/2013,11/11/2012,10/14/2012 [...] 11:00 AM EDT Office Visit Adult Medicine [address] [phone] Cristina Corona MD [address] [place] [address] Health Maintenance Due Date Last Done Comments [...] Procedure Name Priority Date/Time Associated Diagnosis Comments LIPID PANEL WITH REFLEX TO DIRECT LDL [...] mg/dL LAB CHEMISTRY METHOD 01/18/2024 1:40 PM [facility] Triglycerides 89 0 - 150 mg/dL LAB CHEMISTRY METHOD 01/18/2024 1:40 PM [facility] HDL 91 >=40 mg/dL LAB CHEMISTRY METHOD 01/18/2024 1:40 PM [facility] LDL Calculated 162(H) 0 - 100 mg/dL LAB CHEMISTRY METHOD 01/18/2024 1:40 PM [facility] VLDL Cholesterol Manuel 17.8 mg/dL LAB CHEMISTRY METHOD 01/18/2024 1:40 PM [facility] Non HDL Chol. (LDL+VLDL) 180(H) <145 mg/dL LAB CHEMISTRY METHOD 01/18/2024 1:40 PM [facility] Chol/HDL Ratio 3.0 0.0 - 4.4 LAB CHEMISTRY METHOD 01/18/2024 1:40 PM [facility] Blood Venous blood specimen / Unknown Venipuncture / Unknown 01/18/2024 9:37 AM EST 01/18/2024 9:37 AM EST Cristina Corona MD LAB BLOOD ORDERABL ES Final Result [facility] [address] [place] [address], [place] [phone] * SCR MAMMO BI INCL CAD (05/17/2018 [...] Result * Cervical Cancer Screening: HPV (04/20/2015) Pathologist [facility] Cervical Cancer Screening: HPV abstracted, negative Historical Provider HEALTH MAINTENANCE Final Result * Hepatitis C Screening (10/14/2012) [facility] Hepatitis C Screening abstracted Historical Provider HEALTH MAINTENANCE Final Result from Last 3 Months or Most Recently Relevant to Health Maintenance Care Teams Sap Portal Architect Relationship Specialty Start Date End Date Cristina Corona MD PCP - General Internal Medicine 09/10/21
== END 2024-04-18 13:55 | disposition home or self-care (01) ==
LOC: HO.HOSX 13:54
DX: M25.531 Pain in right wrist (principal); S52.301A Unspecified fracture of shaft of right radius, initial encounter for closed fracture; S52.501A Unspecified fracture of the lower end of right radius, initial encounter for closed fracture; S62.121A Displaced fracture of lunate [semilunar], right wrist, initial encounter for closed fracture
CPT/HCPCS: 73110; 99212

== ENCOUNTER 2024-04-18 14:16 | Outpatient (AMB) | payer MEDICARE, SELFPAY ==
--- NOTE | 2024-04-18 14:23 | MHC.OFFVIS ---
Intake Visit Reasons: PO RT distal radius/shaft ORIF 03/21/24 ARw/XR Intake Note: Deysi is a 68 year old right hand dominant female who presents today post operative s/p right distal radius fracture and right radius shaft fracture ORIF, DOS: 03/31/2024 w/ Dr Ceja. At her last visit on 04/04/24 patient was placed into a short-arm cast. cast removed and xrays updated today in office. Patient reports that she is doing well, she is finding it difficult to navigate daily activities with her non dominant hand. Allergies No Known Allergies [No Known Allergies*] Allergy (Verified 04/18/24 14:23) HPI HPI PO RT distal radius/shaft ORIF 03/21/24 ARw/XR: Details: Deysi is a 68 year old right hand dominant female who presents today post operative s/p right distal radius fracture and right radius shaft fracture ORIF, DOS: 03/31/2024 w/ Dr Ceja. At her last visit on 04/04/24 patient was placed into a short-arm cast. cast removed and xrays updated today in office. Patient reports that she is doing well, she is finding it difficult to navigate daily activities with her non dominant hand. 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 No other acute complaints or concerns at this time. 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 Neuro: Normal sensation of the tips of all digits of the right hand at this time Vascular: Cap refill brisk Pain: No tenderness to palpation noted about the right hand or wrist No pain with range of motion of the right hand ROM: Patient was able to make a closed fist and extend all digits of the right hand fully Patient was able to flex the right wrist to approximately 35 degrees, but is unable to extend the right wrist past neutral Patient was able to pronate to 90 degrees, but is only able to supinate to approximately 35-40 degrees Skin: Well approximated and well in healing incision site noted on the volar right wrist General: No ecchymosis, erythema, or evidence of infection. Psych: Appears grossly normal Affect normal Attitude cooperative Results Reviewed Results Reviewed: X-rays obtained in the office today and independently reviewed by me, Zelalem Curtis PA-C, demonstrate surgically reduced fracture of the right distal radius with all orthopedic hardware in place and in satisfactory clinical alignment Assessment & Plan Assessment & Plan (1) Fracture of radial shaft, right, closed: Code(s): S52.301A - Unspecified fracture of shaft of right radius, initial encounter for closed fracture Category: Medical (2) Fracture of right distal radius: Code(s): S52.501A - Unspecified fracture of the lower end of right radius, initial encounter for closed fracture Category: Medical (3) Right lunate fracture: Code(s): S62.121A - Displaced fracture of lunate [semilunar], right wrist, initial encounter for closed fracture Category: Medical Plan 1. Right distal radius and radial shaft fractures status post ORIF 2. 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 Patient was amenable to this plan Patient will follow-up in 4 weeks with repeat x-rays for reassessment, sooner with any acute concerns Orders: Orders XR wrist RT min 3V 04/18/24 M25.531 - Pain in right wrist OT Evaluation and Treatment 04/18/24 S52.301A - Unspecified fracture of shaft of right radius, initial encounter for closed fracture, S52.501A - Unspecified fracture of the lower end of right radius, initial encounter for closed fracture, S62.121A - Displaced fracture of lunate [semilunar], right wrist, initial encounter for closed fracture Coding Level of Care Code Global (52729) Diagnoses Fracture of radial shaft, right, closed S52.301A Fracture of right distal radius S52.501A Right lunate fracture S62.121A
== END 2024-04-18 15:13 | disposition home or self-care (01) ==
PROVIDERS: PCP Internal Medicine
DX: S52.301A Unspecified fracture of shaft of right radius, initial encounter for closed fracture (principal); S52.501A Unspecified fracture of the lower end of right radius, initial encounter for closed fracture; S62.121A Displaced fracture of lunate [semilunar], right wrist, initial encounter for closed fracture
CPT/HCPCS: 99024

== ENCOUNTER → 2024-04-18 14:18 | Outpatient (BNV) | payer MEDICARE, SELFPAY | PROVIDERS: Visit Provider Radiology Diagnostic Radiology | DX: M25.531 Pain in right wrist (principal) | CPT/HCPCS: 73110 ==

== ENCOUNTER 2024-05-16 12:55 | Outpatient (REF) | payer MEDICARE, SELFPAY ==
--- NOTE | ~2024-05-16 | XR_ITS ---
EXAMINATION: XR WRIST 3 OR MORE VIEWS RIGHT HISTORY: M25.531 - Pain in right wrist COMPARISON: Comparison is made with the prior examination dated 04/18/2024. FINDINGS: Three views of the right breast are submitted. The bones are osteopenic. The patient is again noted to be status post internal fixation of a fracture of the distal radius with a sideplate and multiple orthopedic screws. There is slightly greater callus formation at the fracture site, consistent with healing. The fracture line remains visible. The joint spaces are preserved. The soft tissues are unremarkable. XR/XR wrist RT min 3V IMPRESSION: Osteopenia. Healing internally fixed fracture of the distal radius. Electronically signed by: Fam John MD 05/17/2024 08:04 AM EDT
--- OUTSIDE RECORDS SUMMARY | 2024-05-16 15:16 | XMS_ITS | Clinical Summary ---
Author Organization [address] Address [address] [place] [phone] Phone Care Team Providers Care Community Pharmacist Name Role Phone Cristina Corona MD Primary [...] Name Administration Dates Next Due Hepatitis B (Rrcckxu-U-Dlyqd , Recombivax HB-Adult) 19yo and older 04/21/2013,11/11/2012,10/14/2012 [...] Care Team (Late st Contact Info) Description 06/07/2024 11:30 AM EDT Office Visit Adult Medicine [address] [phone] Cristina Corona MD [address] [place] [address] Health Maintenance Due Date Last Done Comments Pneumococcal Vaccine: 50+ Years (1 of 1 - PCV) 05/14/2007 Zoster Vaccines (1 of 2) 05/14/2007 Cervical Cancer Screening: HPV 04/19/2020 04/20/2015 Breast Cancer Screening 05/17/2020 05/18/19 19, 05/11/2017, 05/06/2016 Colorectal Cancer Screening: Colonoscopy 01/18/2022 Depression Screening 01/18/2022 Medicare Annual Wellness Visit 01/18/2022 Osteoporosis Screening (Bone Density Screening) 01/18/2022 Social Influencers of Health Screening 01/18/2022 Falls Risk Assessment 2022 COVID-19 Vaccine ( season) 2023 05/18/2020 Influenza Vaccine (#1) 2023 9, 01/26/2018, 01/08/2017, Additional history exists Cholesterol Screening (Lipid Panel) 01/17/2029 01/18/2024 RSV Immunization Adult Patients (1 - 1-dose 75+ series) 2032 DTaP,Tdap,and [...] age to complete this topic Meningococcal B Vaccine Aged Out No l onger eligible based on patient's age to complete [...] mg/dL LAB CHEMISTRY METHOD 01/18/2024 1:40 PM [facility] Triglycerides 89 0 - 150 mg/dL LAB CHEMISTRY METHOD 01/18/2024 1:40 PM [facility] HDL 91 >=40 mg/dL LAB CHEMISTRY METHOD 01/18/2024 1:40 PM [facility] LDL Calculated 162(H) 0 - 100 mg/dL LAB CHEMISTRY METHOD 01/18/2024 1:40 PM [facility] VLDL Cholesterol Manuel 17.8 mg/dL LAB CHEMISTRY METHOD 01/18/2024 1:40 PM [facility] Non HDL Chol. (LDL+VLDL) 180(H) <145 mg/dL LAB CHEMISTRY METHOD 01/18/2024 1:40 PM [facility] Chol/HDL Ratio 3.0 0.0 - 4.4 LAB CHEMISTRY METHOD 01/18/2024 1:40 PM [facility] Blood Venous blood specimen / Unknown Venipuncture / Unknown 01/18/2024 9:37 AM EST 01/18/2024 9:37 AM EST Cristina Corona MD LAB BLOOD ORDERABL ES Final Result [facility] [address] [place] [address], [place] [phone] * SCR MAMMO BI INCL CAD (05/17/2018 [...] MD IMG XR PROCEDURES Final Result * Hm Cervical Cancer Screening: HPV (04/20/2015) [facility] Cervical Cancer Screening: HPV abstracted, negative Historical Provider HEALTH MAINTENANCE Final Result * Hepatitis C Screening (10/14/2012) [facility] Hepatitis C Screening abstracted Historical Provider HEALTH MAINTENANCE Final Result from Last 3 Months or Most Recently Relevant to Health Maintenance Insurance MEDICARE Care Teams Community Pharmacist Relationship Specialty Start Date End Date Cristina Corona MD [address] [place] [phone] PCP - General Internal Medicine 09/10/21
== END 2024-05-16 12:56 | disposition home or self-care (01) ==
LOC: HO.HOSX 12:55
DX: S52.301D Unspecified fracture of shaft of right radius, subsequent encounter for closed fracture with routine healing (principal); S52.501D Unspecified fracture of the lower end of right radius, subsequent encounter for closed fracture with routine healing; S62.121D Displaced fracture of lunate [semilunar], right wrist, subsequent encounter for fracture with routine healing
CPT/HCPCS: 73110; 99212

== ENCOUNTER 2024-05-16 13:26 | Outpatient (AMB) | payer MEDICARE, SELFPAY ==
--- NOTE | 2024-05-16 13:29 | A.OFFVIS_ITS ---
Vital Signs 05/16/24 13:48 Handedness Right Intake Visit Reasons: PO RT distal radius/shaft ORIF 03/21/24 ARw/XR Intake Note: Deysi is a 68 year old right hand dominant female who presents today post operative s/p right distal radius fracture and right radius shaft fracture ORIF, DOS: 03/31/2024 w/ Dr Ceja. On 04/18/24 patient was given a Velcro wrist splint to wear with daytime activities, advised that she should remove this splint while at rest to begin working on range of motion of the right wrist and referred to occupational therapy. Patient states no one reached out to her for therapy yet. She assumes she needs to be healed before she attends therapy. She denies pain in the right hand. She says at home she has been wearing her brace, massaging her hand, and doing gentle movements of her wrist and fingers around. She admits she does feel some stiffness. 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 She is requesting a letter. Allergies No Known Allergies [No Known Allergies*] Allergy (Verified 05/16/24 13:46) HPI HPI PO RT distal radius/shaft ORIF 03/21/24 ARw/XR: Details: Deysi is a 68 year old right hand dominant female who presents today post operative s/p right distal radius fracture and right radius shaft fracture ORIF, DOS: 03/31/2024 w/ Dr Ceja. On 04/18/24 patient was given a Velcro wrist splint to wear with daytime activities, advised that she should remove this splint while at rest to begin working on range of motion of the right wrist and referred to occupational therapy. Patient states no one reached out to her for therapy yet. She assumes she needs to be healed before she attends therapy. She denies pain in the right hand. She says at home she has been wearing her brace, massaging her hand, and doing gentle movements of her wrist and fingers around. She admits she does feel some stiffness. 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 She is requesting a letter. [facility] Medical History (Updated 05/16/24 @ 13:47 by AJITH Shin) Fracture of right distal radius Fracture of radial shaft, right, closed Bradycardia History of electroconvulsive therapy Graves disease Hypothyroidism Surgical History H/O adenoidectomy History of tonsillectomy H/O wisdom tooth extraction Social History Are you a primary care specialist to a significant other at home: No Do you presently have visiting nurse or other home services: No Unable to assess alcohol history related to: Unknown Patient Tobacco Use Status: Never used Tobacco Current occupational status: unemployed 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 Neuro: Normal sensation of the tips of all digits of the right hand at this time Vascular: Cap refill brisk Pain: No tenderness to palpation noted about the right hand or wrist No pain with range of motion of the right hand ROM: Patient was able to make a closed fist and extend all digits of the right hand fully Patient was able to flex the right wrist to approximately 60 degrees, extension to 30-40 degrees Patient was able to pronate to 90 degrees, but is only able to supinate to approximately 50-60 degrees Skin: Well approximated and well healed incision site noted on the volar right wrist General: No ecchymosis, erythema, or evidence of infection. Psych: Appears grossly normal Affect normal Attitude cooperative Results Reviewed Results Reviewed: X-rays obtained in the office today and independently reviewed by me, Zelalem Curtis PA-C, demonstrate surgically reduced fracture of the right distal radius with all orthopedic hardware in place and in satisfactory clinical alignment and with evidence of interval bony healing Assessment & Plan Assessment & Plan (1) Fracture of radial shaft, right, closed: Code(s): S52.301A - Unspecified fracture of shaft of right radius, initial encounter for closed fracture Category: Medical (2) Fracture of right distal radius: Code(s): S52.501A - Unspecified fracture of the lower end of right radius, initial encounter for closed fracture Category: Medical (3) Right lunate fracture: Code(s): S62.121A - Displaced fracture of lunate [semilunar], right wrist, initial encounter for closed fracture Category: Medical Plan 1. Right distal radius and radial shaft fractures status post ORIF 2. 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
--- OUTSIDE RECORDS SUMMARY | 2024-05-16 15:57 | XMS_ITS | Clinical Summary ---
Author Organization [address] Address [address] [place] [phone] Phone Care Team Providers Care Outside Sales Manager Name Role Phone Cristina Corona MD Primary [...] Name Administration Dates Next Due Hepatitis B (Xnakrzp-I-Yubfx , Recombivax HB-Adult) 19yo and older 04/21/2013,11/11/2012,10/14/2012 [...] 11:30 AM EDT Office Visit Adult Medicine [address] [phone] Cristina Corona MD [address] [place] [address] Health Maintenance Due Date Last Done Comments [...] LAB BLOOD ORDERABL ES Final Result [facility] [address] [place] [address], [place] [phone] * SCR MAMMO BI INCL CAD (05/17/2018 [...] * Hm Cervical Cancer Screening: HPV (04/20/2015) [facility] Cervical Cancer Screening: HPV abstracted, negative Historical Provider HEALTH MAINTENANCE Final Result * Hepatitis C Screening (10/14/2012) [facility] Hepatitis C Screening abstracted Historical Provider HEALTH MAINTENANCE Final Result from Last 3 Months or Most Recently Relevant to Health Maintenance Insurance MEDICARE Care Teams Outside Sales Manager Relationship Specialty Start Date End Date Cristina Corona MD [address] [place] [phone] PCP - General Internal Medicine 09/10/21
== END 2024-05-16 14:12 | disposition home or self-care (01) ==
LOC: HO.HOS 13:27
DX: S52.301A Unspecified fracture of shaft of right radius, initial encounter for closed fracture (principal); S52.501A Unspecified fracture of the lower end of right radius, initial encounter for closed fracture; S62.121A Displaced fracture of lunate [semilunar], right wrist, initial encounter for closed fracture
CPT/HCPCS: 99024

== ENCOUNTER → 2024-05-16 13:27 | Outpatient (BNV) | payer MEDICARE, SELFPAY | PROVIDERS: Visit Provider Radiology Diagnostic Radiology | DX: S52.501D Unspecified fracture of the lower end of right radius, subsequent encounter for closed fracture with routine healing (principal); M85.811 Other specified disorders of bone density and structure, right shoulder | CPT/HCPCS: 73110 ==

== ENCOUNTER 2024-05-24 15:58 | Outpatient (AMB) | payer MEDICARE, SELFPAY ==
--- NOTE | 2024-05-24 16:20 | A.OFFPSYCH_ITS ---
Intake Intake Visit Reasons: depression Allergies No Known Allergies [No Known Allergies*] Allergy (Verified 06/13/24 14:47) HPI- Psychiatric Chief Complaint: depression HPI Narrative: Patient seen psychiatric follow-up. Patient did have traumatic injury to her arm which did require surgery. She has been tolerating and adjusting well does trigger old memories when she was much younger and had serious pelvic injury. Patient does try to manage things has some support from her . Patient does tend to try to be quite independent. 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 Anderson he has for many years. Had a difficult time after she left work and then took an extended period of time to regroup Mental Status Exam Mental Status Exam Narrative: Mental Status Exam Narrative: Appearance: Casually dressed Behavior: Cooperative appropriate psychomotor: Within normal limits Speech: Normal volume and prosody Thought proccess logical and goal-directed some ruminating Thought content: Future oriented focused on maintenance of autonomy wanting to be understood Mood: Described as okay Affect: Some Flattening SI:denies HI:denies VH/AH:none Delusions: None Insight/judgment: Good insight and judgment Memory/cog: Intact Assessment and Plan Assessment & Plan (1) Major depression, recurrent, full remission: Status: Acute Code(s): F33.42 - Major depressive disorder, recurrent, in full remission (2) Fracture of radial shaft, right, closed: Status: Acute Code(s): S52.301A - Unspecified fracture of shaft of right radius, initial encounter for closed fracture (3) Generalized anxiety disorder: Status: Acute Code(s): F41.1 - Generalized anxiety disorder Counseling and coordination of Care Pt. Self Management counseling: Behavior activation Details-Self Mgmt counseling: Issues of maintenance of functioning intensity in maintaining her autonomy and functional level especially given her history of depression structure has been quite helpful volunteer work structure in relationship to home care. Complex relationship with her Patient has difficulty expressing emotional vulnerability and dependency which comes up in the relationship Diagnosis and Prognosis Counseling: Adequacy of current interventions Details-Diagnosis/Prognosis counseling: Patient aware of past history of severe depression including TMS ECT multiple medications concerns about the future Potential treatment options if needed Details: I spent [40] minutes reviewing the record, seeing the patient and documenting in the medical record. Counseling provided to the patient/caregiver as outlined below. Addressed pa tient/caregiver concerns regarding current medication regime including effective adherence. Addressed patient/caregiver concerns regarding diagnosis and prognosis including accuracy of diagnosis, prognosis over time, impact of diagnosis. Addressed patient/caregiver concerns regarding impact of recent stressors. [facility] Medical History (Updated 05/16/24 @ 13:47 by AJITH Shin) Fracture of right distal radius Fracture of radial shaft, right, closed Bradycardia History of electroconvulsive therapy Graves disease Hypothyroidism Surgical History H/O adenoidectomy History of tonsillectomy H/O wisdom tooth extraction Social History Are you a primary director of medicare to a significant other at home: No Do you presently have visiting nurse or other home services: No Unable to assess alcohol history related to: Unknown Patient Tobacco Use Status: Never used Tobacco Current occupational status: unemployed 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 When depressed the patient felt not taking care of by her she was very self-critical this appears to have re balanced Patient use to enjoy horseback riding and running there is a history of traumatic leg injury when she was younger. There is a family history of depression patient does not have any children Substance History: none Trauma History: History of severe physical injury when younger Coding Level of Care Code Est Pt Level 3 (79985) Therapy 30m w/E&M (52382) Diagnoses Major depression, recurrent, full remission F33.42 Fracture of radial shaft, right, closed S52.301A Generalized anxiety disorder F41.1
--- OUTSIDE RECORDS SUMMARY | 2024-05-24 18:52 | XMS_ITS | Clinical Summary ---
Author Organization [address] Address [address] [place] [phone] Phone Care Team Providers Care Pharmaceutical Operator Name Role Phone Cristina Corona MD Primary [...] medication 04/12/2015 Osteopenia 11/26/2011 Bipolar affective disorder ([facility] V24, [facility] V28) 12/12/2010 Overview (01/19/2024): Krista Davis provider Immunizations Name Administration Dates Next Due Hepatitis B (Jbekddf-O-Nkzow , Recombivax HB-Adult) 19yo and older 04/21/2013,11/11/2012,10/14/2012 [...] ? LEEP(by pt description). Bipolar affective disorder ( [facility] V24, [facility] V28) 12/12/2010 DX:Bipolar affective disorde r ([facility]); COMMENT: Susan provider Family History Medical History [...] 11:30 AM EDT Office Visit Adult Medicine [address] [phone] Cristina Corona MD [address] [place] [phone] Health Maintenance Due Date Last Done Comments [...] Vaccine ( season) 2023 05/18/2020 Influenza Vaccine (Season Ended) 2024 12/27/2018, 01/26/2018, 01/08/2017, Additional history exists Cholesterol Screening [...] mg/dL LAB CHEMISTRY METHOD 01/18/2024 1:40 PM [facility] Triglycerides 89 0 - 150 mg/dL LAB CHEMISTRY METHOD 01/18/2024 1:40 PM [facility] HDL 91 >=40 mg/dL LAB CHEMISTRY METHOD 01/18/2024 1:40 PM [facility] LDL Calculated 162(H) 0 - 100 mg/dL LAB CHEMISTRY METHOD 01/18/2024 1:40 PM [facility] VLDL Cholesterol Manuel 17.8 mg/dL LAB CHEMISTRY METHOD 01/18/2024 1:40 PM [facility] Non HDL Chol. (LDL+VLDL) 180(H) <145 mg/dL LAB CHEMISTRY METHOD 01/18/2024 1:40 PM [facility] Chol/HDL Ratio 3.0 0.0 - 4.4 LAB CHEMISTRY METHOD 01/18/2024 1:40 PM [facility] Blood Venous blood specimen / Unknown Venipuncture / Unknown 01/18/2024 9:37 AM EST 01/18/2024 9:37 AM EST Cristina Corona MD LAB BLOOD ORDERABL ES Final Result [facility] [address] [place] [address], * SCR MAMMO BI INCL CAD (05/17/2018 [...] Result * Cervical Cancer Screening: HPV (04/20/2015) Cervical Cancer Screening: HPV abstracted, negative Historical Provider HEALTH MAINTENANCE Final Result * Hepatitis C Screening (10/14/2012) Hepatitis C Screening abstracted Historical Provider HEALTH MAINTENANCE Final Result from Last 3 Months or Most Recently Relevant to Health Maintenance Insurance MEDICARE Care Teams Pharmaceutical Operator Relationship Specialty Start Date End Date Cristina Corona MD [address] [place] [phone] PCP - General Internal Medicine 09/10/21
== END 2024-05-24 16:55 | disposition home or self-care (01) ==
LOC: HO.HOP 15:58
PROVIDERS: PCP Internal Medicine; Visit Provider Psychiatry & Neurology Psychiatry
DX: F33.42 Major depressive disorder, recurrent, in full remission (principal); S52.301A Unspecified fracture of shaft of right radius, initial encounter for closed fracture; F41.1 Generalized anxiety disorder
CPT/HCPCS: 90833; 99213

== ENCOUNTER → 2024-05-24 15:58 | Outpatient (BNVA) | payer MEDICARE, SELFPAY | PROVIDERS: PCP Internal Medicine; Visit Provider Psychiatry & Neurology Psychiatry | DX: F33.42 Major depressive disorder, recurrent, in full remission (principal); F41.1 Generalized anxiety disorder; S52.301A Unspecified fracture of shaft of right radius, initial encounter for closed fracture | CPT/HCPCS: 99212 ==

== ENCOUNTER 2024-06-13 09:17 | Outpatient (REF) | payer MEDICARE, SELFPAY ==
--- NOTE | ~2024-06-13 | XR_ITS ---
CLINICAL HISTORY: M25.531 - Pain in right wrist 3 view right wrist Comparison: DX/SR - XR WRIST RT MIN 3V - 05/16/24 13:27 EDT Findings: Internal fixation hardware appears stable/intact. The distal radial fracture lucency remains faintly visualized on the lateral view. Degenerative changes seen throughout the carpal bones and of the radiocarpal articulation. IMPRESSION: Stable hardware. Healing distal right radial fracture. This document has been electronically signed by: Wilber Thomas MD on 06/14/2024 12:29:39
== END 2024-06-13 09:18 | disposition home or self-care (01) ==
LOC: HO.HOSX 09:17
DX: M25.531 Pain in right wrist (principal); S52.301A Unspecified fracture of shaft of right radius, initial encounter for closed fracture; S52.501A Unspecified fracture of the lower end of right radius, initial encounter for closed fracture; S62.121A Displaced fracture of lunate [semilunar], right wrist, initial encounter for closed fracture
CPT/HCPCS: 73110; 99212

== ENCOUNTER 2024-06-13 14:09 | Outpatient (AMB) | payer MEDICARE, SELFPAY ==
--- NOTE | 2024-06-13 14:46 | MHC.OFFVIS ---
Vital Signs 06/13/24 14:47 Height 5 ft 9.5 in Weight 147 lb BMI 21.4 Intake Visit Reasons: PO RT distal radius/shaft ORIF 03/21/24 ARw/XR Intake Note: Deysi is a 68 year old right hand dominant female who presents today post operative s/p right distal radius fracture and right radius shaft fracture ORIF, DOS: 03/31/2024 w/ Dr Chani Ceja. Patient reports she is doing well. She was unable to start OT due to the level of pain she as in at the time. Patient is not taking anything for pain at this time. She continues working on ROM exercises at home. Denies numbness, tingling, finger locking. Allergies No Known Allergies [No Known Allergies*] Allergy (Verified 06/13/24 14:47) HPI HPI PO RT distal radius/shaft ORIF 03/21/24 ARw/XR: Details: Deysi is a 68 year old right hand dominant female who presents today post operative s/p right distal radius fracture and right radius shaft fracture ORIF, DOS: 03/31/2024 w/ Dr Chani Ceja. Patient reports she is doing well. She was unable to start OT due to the level of pain she as in at the time. Patient is not taking anything for pain at this time. She continues working on ROM exercises at home. Denies numbness, tingling, finger locking. [facility] Medical History (Updated 05/16/24 @ 13:47 by AJITH Shin) Fracture of right distal radius Fracture of radial shaft, right, closed Bradycardia History of electroconvulsive therapy Graves disease Hypothyroidism Surgical History H/O adenoidectomy History of tonsillectomy H/O wisdom tooth extraction Social History Are you a primary complex care nurse to a significant other at home: No Do you presently have visiting nurse or other home services: No Unable to assess alcohol history related to: Unknown Patient Tobacco Use Status: Never used Tobacco Current occupational status: unemployed 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 Neuro: Normal sensation of the tips of all digits of the right hand at this time Vascular: Cap refill brisk Pain: No tenderness to palpation noted about the right hand or wrist No pain with range of motion of the right hand ROM: Patient was able to make a closed fist and extend all digits of the right hand fully Patient was able to flex the right wrist to approximately 60 degrees, extension to 40 degrees Patient was able to pronate to 90 degrees, able to supinate to approximately 80 degrees Skin: Well approximated and well healed incision site noted on the volar right wrist General: No ecchymosis, erythema, or evidence of infection. Psych: Appears grossly normal Affect normal Attitude cooperative Results Reviewed Results Reviewed: X-rays obtained in the office today and independently reviewed by me, Zelalem Curtis PA-C, demonstrate surgically reduced fracture of the right distal radius with all orthopedic hardware in place and in satisfactory clinical alignment and with evidence of interval bony healing Assessment & Plan Assessment & Plan (1) Fracture of radial shaft, right, closed: Code(s): S52.301A - Unspecified fracture of shaft of right radius, initial encounter for closed fracture Category: Medical (2) Fracture of right distal radius: Code(s): S52.501A - Unspecified fracture of the lower end of right radius, initial encounter for closed fracture Category: Medical (3) Right lunate fracture: Code(s): S62.121A - Displaced fracture of lunate [semilunar], right wrist, initial encounter for closed fracture Category: Medical Plan 1. Right distal radius and radial shaft fractures status post ORIF 2. Right lunate fracture DOS 03/21/2024 Patient appears to be recovering well postoperatively Patient was educated about the typical recovery course At this time, patient was given a Velcro wrist splint to wear with daytime activities, and is advised that she should remove this splint while at rest to begin working on range of motion of the right wrist Patient was also referred to occupational therapy to help with her range of motion Patient is educated that she can gradually increase her lifting over the next 4 weeks, can increase to 10-15 lb over the next 2 weeks, 5th 20 lb over the following 2, and then with a gradual return back to full normal lifting 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
[2024-06-13 14:47] VITALS: BMI 21.4
--- OUTSIDE RECORDS SUMMARY | 2024-06-13 15:42 | XMS_ITS | Clinical Summary ---
Author Organization [address] Address [address] [place] [phone] Phone Care Team Providers Care Bicycle Messenger Name Role Phone Cristina Corona MD Primary Care Prov ider Allergies No known active allergies Medications Synthroid 112 mcg tablet TAKE 1 TABLET BY MOUTH EVERY DAY 90 tablet 1 4 Active Synthroid 112 mcg tablet Take 1 tablet (112 mcg total) by mouth 1 (one) time each day. 06/08/19 25 Discontinu ed(Duplica te order) Active Problems Problem Noted Date Diagnosed Date Hypothyroidism due to medication 04/12/2015 Assessment & Plan (06/07/2024 12:59 PM EDT): Currently on levothyroxine 112 mcg a day. Last TSH within normal limits. Will continue same dose. Osteopenia 11/26/2011 Bipolar affective disorder (CMS/HCC V24, CMS/HCC V28) 12/12/2010 Overview (01/19/2024): Ssuan provider Assessment & Plan (06/07/2024 12:59 PM EDT): Patient follows regularly with behavioral health. No recent exacerbations. Overall good level of performance. Encounters Date Type Department Care Team Description 06/07/2024 11:30 AM EDT Office Visit Adult Medicine [facility] [address] [place] [phone] Cristina Alvarado MD Hypothyroidism due to medication (Primary Dx); Mixed hyperlipidemia; Bipolar disorder in full remission, most recent episode unspecified type ([facility] V24); Encounter for screening involving social determinants of health (SDoH); Screening for depression from Last 3 Months Immunizations Name Administration Dates Next Due Hepatitis B (Tjnwiwz-K-Aseps , Recombivax HB-Adult) 19yo and older 04/21/2013,11/11/2012,10/14/2012 [...] LEEP(by pt description). Bipolar affective disorder ( CMS/HCC V24, CMS/[facility] V28) 12/12/2010 DX:Bipolar affective disorde r (HCC); COMMENT: Susan provider Family History Medical [...] drink = 0.6 oz pur e alcohol) Housing Instability Answer Date Recorde d Are you worried that in the next 2 months you may not have stable housing? No 06/07/2024 Food Access & Nutrition Answer Date Rec orded Do you have access to a vari ety of food including fruits and vegetables? Yes 06/07/2024 Health Literacy Answer Date Recorded How often do you need to hav e someone help you when you read instructions, pamphlets, or other written material from your doctor or pharmacy? Never 06/07/2024 Caregiver: How often do you need to have someone help you when you read instructions, pamphlets, or other written material from your doctor or pharmacy? Not on file 06/07/2024 Financial Risk Answer Date Recorded How hard is it for you to pa y for the very basics like food, housing, medical care, and air conditioning / heating? Not very hard 06/07/2024 Transportation Answer Date Recorded Has the lack of transportati on kept you from meetings, work, or from getting things needed for daily living? No Has the lack of transportati on kept you from medical appointments or from getting medications? No 06/07/2024 Social Isolation Answer Date Recorded How often do you feel lonely or isolated from th ose around you? Never 06/07/2024 Food Risk Answer Date Recorded Within the past 12 months we worried whether our food would run out before we got money to buy more. Never true 06/07/2024 Within the past 12 months th e food we bought just didn't last and we didn't have money to get more. Never true 06/07/2024 Dependent Care Answer Date Recorded Do you need help finding or paying for care for your loved ones. For example, child and family services specialist or elderly care for an older adult? No 06/07/2024 Education Answer Date Recorded Do you think completing more education or training, like finishing a GED, going to college, or learning a trade, would be helpful for you? No 06/07/2024 Employment and Income Answer Date Recor ded During the last four weeks, have you been actively looking for work? No 06/07/2024 Living Situation Answer Date Recorded What is your living situation? 0 06/07/2024 Comments No Sex and Gender Information Value Date Recorded Sex Assigned at Not on file Legal Sex Female 7:06 PM EST Gender Identity Not on file Sexual Orientation Not on file Obstetrics History Last Filed Vital Signs Vital Sign Reading Time Taken Comments Blood Pressure 122/78 06/07/2024 11:35 AM EDT Pulse 47 06/07/2024 11:35 AM EDT Temperature 36.1 ??C (96.9 ??F) 06/07/2024 11:35 AM E DT Respiratory Rate 14 06/07/2024 11:35 AM EDT Oxygen Saturation - - Inhaled Oxygen Concentration - - Weight 64 kg (141 lb 3.2 oz) 06/07/2024 11:35 AM EDT Height 176.5 cm (5' 9.5 ) 06/07/2024 11:35 AM ED T Body Mass Index 20.55 06/07/2024 11:35 AM EDT Plan of Treatment Upcoming Encounters Date Type Department Care Team (Late st Contact Info) Description 12/07/2024 3:00 PM EDT Office Visit Adult Medicine [facility] [address] [place] [phone] Christie Bedoya PA [address] [place] [address] Health Maintenance Due Date Last Done Comments Pneumococcal Vaccine: 50+ Years (1 of 1 - PCV) 05/14/2007 Zoster Vaccines (1 of 2) 05/14/2007 Medicare Annual Wellness Visit 01/18/2022 Osteoporosis Screening (Bone Density Screening) 01/18/2022 COVID-19 Vaccine ( - season) 2023 05/18/2020 Influenza Vaccine (Season Ended) 2024 12/27/2018, 01/26/2018, 01/08/2017, Additional history exists Colorectal Cancer Screening: Colonoscopy 06/07/2025 Postponed from 01/18/2022 (Patient Refused) Depression Screening 06/07/2025 06/07/2024 Falls Risk Assessment 06/07/2025 06/07/2024 Social Influencers of Health Screening 06/07/2025 06/07/2024 Cholesterol Screening (Lipid Panel) 01/17/2029 01/18/2024 RSV Immunization Adult Patients (1 - 1-dose 75+ series) 2032 DTaP,Tdap,and Td Vaccines (4 - Td or Tdap) 07/24/2032 07/24/2022, 03/25/2012, 02/09/2007 Hepatitis C Screening Completed 10/14/2012 Hepatitis B Vaccines Completed 04/21/2013, 11/11/2012, 10/14/2012 Cervical Cancer Screening: HPV Discontinued 04/20/2015 Breast Cancer Screening Discontinued 05/18/19 19, 05/11/2017, 05/06/2016 HIB Vaccines Aged Out No longer eligi [...] mg/dL LAB CHEMISTRY METHOD 01/18/2024 1:40 PM EST [facility] Triglycerides 89 0 - 150 mg/dL LAB CHEMISTRY METHOD 01/18/2024 1:[address] [facility] HDL 91 >=40 mg/dL LAB CHEMISTRY METHOD 01/18/2024 1:[address] [facility] LDL Calculated 162(H) 0 - 100 mg/dL LAB CHEMISTRY METHOD 01/18/2024 1:40 PM EST [facility] VLDL Cholesterol Manuel 17.8 mg/dL LAB CHEMISTRY METHOD 01/18/2024 1:[address] [facility] Non HDL Chol. (LDL+VLDL) 180(H) <145 mg/dL LAB CHEMISTRY METHOD 01/18/2024 1:[address] [facility] Chol/HDL Ratio 3.0 0.0 - 4.4 LAB CHEMISTRY METHOD 01/18/2024 1:40 PM EST [facility] Blood Venous blood specimen / Unknown Venipuncture / Unknown 01/18/2024 9:37 AM EST 01/18/2024 9:37 AM EST us Cristina Corona MD LAB BLOOD ORDERABL ES Final Result [facility] [address] [place] [address], * SCR MAMMO BI INCL CAD (05/17/2018 [...] * Cervical Cancer Screening: HPV (04/20/2015) Pathologist [facility] Cervical Cancer Screening: HPV abstracted, negative Historical Provider HEALTH MAINTENANCE Final Result * Hepatitis C Screening (10/14/2012) Pathologist [facility] Hepatitis C Screening abstracted Historical Provider HEALTH MAINTENANCE Final Result from Last 3 Months or Most Recently Relevant to Health Maintenance Insurance MEDICARE [facility] Care Teams Bicycle Messenger Relationship Specialty Start Date End Date Cristina Corona MD [address] [place] [phone] PCP - General Internal Medicine 09/10/21
== END 2024-06-13 15:13 | disposition home or self-care (01) ==
LOC: HO.HOS 14:10
DX: S52.301A Unspecified fracture of shaft of right radius, initial encounter for closed fracture (principal); S52.501A Unspecified fracture of the lower end of right radius, initial encounter for closed fracture; S62.121A Displaced fracture of lunate [semilunar], right wrist, initial encounter for closed fracture
CPT/HCPCS: 99024

== ENCOUNTER → 2024-06-13 14:12 | Outpatient (BNV) | payer MEDICARE, SELFPAY | PROVIDERS: Visit Provider Radiology Vascular & Interventional Radiology | DX: S52.501D Unspecified fracture of the lower end of right radius, subsequent encounter for closed fracture with routine healing (principal) | CPT/HCPCS: 73110 ==

== ENCOUNTER 2024-10-13 11:03 | Outpatient (AMB) | payer MEDICARE, SELFPAY ==
--- NOTE | 2024-10-13 11:20 | A.OFFPSYCH_ITS ---
Intake Intake Visit Reasons: depression Allergies No Known Allergies (No Known Allergies*) Allergy (Verified 06/13/24 14:47) HPI- Psychiatric Chief Complaint: depression HPI Narrative: Pt seen in f/u relates hx of graves disease had rad I tx then hypothyroid tx [address] [facility] tx thyroid and for depression was hosp [facility] had 2-3 hosp s/p radiation tx [facility] [employer] [place] felt like a burden on her family has brother and nephew/niece dr anderson was great support x yrs tends toward self blame tms was helpful in the past pt became a runner to help her mood yrs ago Past Psychiatric History: 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 Anderson he has for many years. Had a difficult time after she left work and then took an extended period of time to regroup Mental Status Exam Mental Status Exam Narrative: Mental Status Exam Narrative: Appearance: Casually dressed Behavior: Cooperative appropriate psychomotor: Within normal limits Speech: Normal volume and prosody Thought proccess logical and goal-directed some ruminating Thought content: Future oriented focused on maintenance of autonomy wanting to be understood and her past Mood: Described as okay Affect: Some Flattening SI:denies HI:denies VH/AH:none Delusions: None Insight/judgment: Good insight and judgment Memory/cog: Intact Level of Consciousness: Awake Assessment and Plan Assessment & Plan (1) Major depression, recurrent, full remission: Status: Acute Code(s): F33.42 - Major depressive disorder, recurrent, in full remission (2) Generalized anxiety disorder: Status: Acute Code(s): F41.1 - Generalized anxiety disorder (3) Hypothyroidism: Status: Acute Code(s): E03.9 - Hypothyroidism, unspecified Plan Pt looking syl make sense of her life to accept diff road less traveled and past traumas how this may have led her to depression in the past. consider tms if needed h ad adm few months ago for afib now ok he has pacer and defibrillator [facility] Counseling and coordination of Care Details-Self Mgmt counseling: issues related to maintain her stability Medication management counseling: Effectiveness and Side effects Diagnosis and Prognosis Counseling: Impact of diagnosis on life functions and Adequacy of current interventions Details: I spent [45] minutes reviewing the record, seeing the patient and documenting in the medical record. Counseling provided to the patient/caregiver as outlined below. Addressed patient/caregiver concerns regarding current medication regime including effective adherence. Addressed patient/caregiver concerns regarding diagnosis and prognosis including accuracy of diagnosis, prognosis over time, impact of diagnosis. Addressed patient/caregiver concerns regarding impact of recent stressors. [facility] Medical History (Updated 05/16/24 @ 13:47 by AJITH Shin) Fracture of right distal radius Fracture of radial shaft, right, closed Bradycardia History of electroconvulsive therapy Graves disease Hypothyroidism Surgical History H/O adenoidectomy History of tonsillectomy H/O wisdom tooth extraction Social History Are you a primary child care leader to a significant other at home: No Do you presently have visiting nurse or other home services: No Unable to assess alcohol history related to: Unknown Patient Tobacco Use Status: Never used Tobacco Current occupational status: unemployed 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 When depressed the patient felt not taking care of by her she was very self-critical this appears to have re balanced Patient use to enjoy horseback riding and running there is a history of traumatic leg injury when she was younger. There is a family history of depression patient does not have any children Substance History: none Trauma History: History of severe physical injury when younger Coding Level of Care Code Est Pt Level 3 (41900) Therapy 30m w/E&M (17973) Diagnoses Major depression, recurrent, full remission F33.42 Generalized anxiety disorder F41.1 Hypothyroidism E03.9
--- OUTSIDE RECORDS SUMMARY | 2024-10-13 12:40 | XMS_ITS ---
Author Name [facility] Organization Unknown Care Team Organization Name Specialty Phone Email Start Date End Da te [facility] Cristina Hansen Primary Care 2022 09/28/2023 [facility] Ana Maria Mcdermott MD Primary Care 12/17/2021 09/28/2023
--- OUTSIDE RECORDS SUMMARY | 2024-10-13 12:40 | XMS_ITS | Clinical Summary ---
Author Organization [address] Address [address] [place] [phone] Phone Care Team Providers Care Environmental Geologist Name Role Phone Cristina Corona MD Primary Care Prov ider Allergies No known active allergies Medications Synthroid 112 mcg tablet TAKE 1 TABLET BY MOUTH EVERY DAY 90 tablet 1 07/27/2024 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 Assessment & Plan (06/07/2024 12:59 PM EDT): Currently on levothyroxine 112 mcg a day. Last TSH within normal limits. Will continue same dose. Osteopenia 11/26/2011 Bipolar affective disorder ([facility] V24, [facility] V28) 12/12/2010 Overview (01/19/2024): Susan provider Assessment & Plan (06/07/2024 12:59 PM EDT): Patient follows regularly with behavioral health. No recent exacerbations. Overall good level of performance. Immunizations Name Administration Dates Next Due Hepatitis B (Kegxkbh-N-Mfuze , Recombivax HB-Adult) 19yo and older 04/21/2013,11/11/2012,10/14/2012 [...] LEEP(by pt description). Bipolar affective disorder ( [facility] V24, [facility] V28) 12/12/2010 DX:Bipolar affective disorde r ([facility]); COMMENT: Susan provider Family History Medical [...] care for your loved ones. For example, children's service supervisor or elderly care for an older adult? [...] 47 06/07/2024 11:35 AM EDT Temperature 36.1 C (96.9 F) 06/07/2024 11:35 AM EDT Respiratory Rate 14 06/07/2024 11:35 AM EDT [...] 3:00 PM EDT Office Visit Adult Medicine [facility] [address] [place] [phone] Christie Bedoya PA [address] [place], [place] Health Maintenance Due Date Last Done Comments Pneumococcal Vaccine: 50+ Years (1 of 1 - PCV) 05/14/2007 Zoster Vaccines (1 of 2) 05/14/2007 Medicare Annual Wellness Visit 01/18/2022 Osteoporosis Screening (Bone Density Screening) 01/18/2022 COVID-19 Vaccine (2 - season) 2023 05/18/2020 Influenza Vaccine (#1) 2024 9, 01/26/2018, 01/08/2017, Additional history exists Colorectal Cancer Screening: Colonoscopy 06/07/2025 Postponed from 01/18/2022 (Patient Refused) Falls Risk Assessment 06/07/2025 06/07/2024 Social Influencers [...] Cancer Screening Discontinued 05/18/19 19, 05/11/2017, 05/06/2016 Depression Screening Completed 06/07/2024 HIB Vaccines Aged Out No longer eligi [...] LAB CHEMISTRY METHOD 01/18/2024 1:40 PM EST [facility] Triglycerides 89 0 - 150 mg/dL LAB CHEMISTRY METHOD 01/18/2024 1:40 PM EST [facility] HDL 91 >=40 mg/dL LAB CHEMISTRY METHOD 01/18/2024 1:40 PM EST [facility] LDL Calculated 162(H) 0 - 100 mg/dL LAB CHEMISTRY METHOD 01/18/2024 1:40 PM [facility] VLDL Cholesterol Manuel 17.8 mg/dL LAB CHEMISTRY METHOD 01/18/2024 1:40 PM EST [facility] Non HDL Chol. (LDL+VLDL) 180(H) <145 mg/dL LAB CHEMISTRY METHOD 01/18/2024 1:40 PM EST [facility] Chol/HDL Ratio 3.0 0.0 - 4.4 LAB CHEMISTRY METHOD 01/18/2024 1:40 PM EST [facility] Blood Venous blood specimen / Unknown Venipuncture / Unknown 01/18/2024 9:37 AM EST 01/18/2024 9:37 AM EST us Cristina Corona MD LAB BLOOD ORDERABL ES Final Result [facility] [address] [place] [address], [place] [phone] * SCR MAMMO BI INCL CAD (05/17/2018 [...] Result * Cervical Cancer Screening: HPV (04/20/2015) [facility] Cervical Cancer Screening: HPV abstracted, negative Historical Provider HEALTH MAINTENANCE Final Result * Hepatitis C Screening (10/14/2012) [facility] Hepatitis C Screening abstracted Result [facility] Historical Provider HEALTH MAINTENANCE Final Result from Last 3 Months or Most Recently Relevant to Health Maintenance Insurance MEDICARE [facility] Care Teams Environmental Geologist Relationship Specialty Start Date End Date Cristina Corona MD [address] [place] [phone] PCP - General Internal Medicine 09/10/21
== END 2024-10-13 12:47 | disposition home or self-care (01) ==
LOC: HO.HOP 11:03
PROVIDERS: PCP Internal Medicine; Visit Provider Psychiatry & Neurology Psychiatry
DX: F33.42 Major depressive disorder, recurrent, in full remission (principal); F41.1 Generalized anxiety disorder; E03.9 Hypothyroidism, unspecified
CPT/HCPCS: 90833; 99213

== ENCOUNTER → 2024-10-13 11:03 | Outpatient (BNVA) | payer MEDICARE, SELFPAY | PROVIDERS: PCP Internal Medicine; Visit Provider Psychiatry & Neurology Psychiatry | DX: F33.42 Major depressive disorder, recurrent, in full remission (principal); F41.1 Generalized anxiety disorder; E03.9 Hypothyroidism, unspecified; Z81.8 Family history of other mental and behavioral disorders | CPT/HCPCS: 99212 ==